=== PATIENT | male | born 1980 | race Caucasian/White ===

== ENCOUNTER 2018-12-02 21:48 | Inpatient (IN) | payer OTHER ==
[2018-12-02 22:23] VITALS: BMI 22.3
--- NOTE | 2018-12-02 23:13 | HP ---
COWS - Scale Resting Pulse: 2= DE 101-120 Sweatin=Flushed/Facial Moisture Restless Observation: 3= Extraneous Movement Pupil Size: 0= Normal to Room Light Bone or Joint Aches: 4=Acute Joint/Muscle Pain Runny Nose/ Eye Tearin= Runny Nose/Eyes GI Upset > 30mins: 2= Nausea/Diarrhea Tremor Observation: 1= Tremor [place], Not Seen Yawning Observation: 1= 1-2x During Session Anxiety or Irritability: 2=Irritable/Anxious Goose Flesh Skin: 0=Smooth Skin COWS Score: 19 CIWA Score Nausea/Vomitin-Mild Nausea/No Vomiting Muscle Tremors: 1-None Visible, but [place] Anxiety: 4-Mod. Anxious/Guarded Agitation: 4-Moderately Restless Paroxysmal Sweats: 3 Orientation: 0-Oriented Tacttile Disturbances: 3-Moderate Itch/Numb/Burn Auditory Disturbances: 0-None Visual Disturbances: 0-None Headache: 3-Moderate CIWA-Ar Total Score: 19 - Admission Criteria [facility]ASAS Guidelines: Admission for Medically Managed Detox: Requires at least one of the followin. CIWA greater than 12 2. Seizures within the past 24 hours 3. Delirium tremens within the past 24 hours 4. Hallucinations within the past 24 hours 5. Acute intervention needed for co occurring medical disorder 6. Acute intervention needed for co occurring psychiatric disorder 7. Severe withdrawal that cannot be handled at a lower level of care (continued vomiting, continued diarrhea, abnormal vital signs) requiring intravenous medication and/or fluids 8. Patient presents the following: CIWA greater than 12, Seizures, delirium tremens or hallucinations in the past 12 hours Admission Criteria Met: Admission criteria met Admission ROS [facility] Chief Complaint: c/o worsening withdrawal sx's. s/p seizure Allergies/Adverse Reactions: Allergies Allergy/AdvReac Type Severity Reaction Status Date / Time No Known Allergies Allergy Verified 12/02/18 23:24 History of Present Illness: 38 y.o. male with hx/o polysusbatnce abuse here for detox from alcohol , xanax and heroin. client was referred by [facility] after being take there after having a seizure earlier today client reports. he presents with dc papers with dx'x of benzo withdrawal and left hand trigger finger. he also presents with a bleeding abrasion to right side of head. client states he sustained this injury when he fell from the seizure. hospital was called which confirmed client did have a neagtive head ct. This is client first admission here. he presents with withdrawal sx's. -. utox + mtd, bzo, bup, thx, alex. Client reports using 15 bags of heroin daily via iv/sniff and xanax 5 sticks daily last used both drugs 4 days ago. he also reports drinking alcohol 1/2 to 1pint of liquor daily. last 5 days ago. he reports using street sbx and mtd. last use 1 day ago. reports longest clean time 10 years self maintained and most recent clean time is 2 years incarcerated relapsing 3 months ago. this is his 2nd seizure, denies si/hi, avh, dt's. reports hx/o depression denies medical issues except for withdrawal seizures. lives with family, unemployed, denies legals Exam Limitations: No Limitations - Ebola screening Have you traveled outside of the country in the last 21 days: No Have you had contact with anyone from an Ebola affected area: No Have you been sick,other than usual withdrawal symptoms: No Do you have a fever: No - Review of Systems Constitutional: Chills, Diaphoresis, Malaise, Night Sweats, Changes in sleep, Other (yawning several times) EENT: reports: Dental Problems (missing teeth) Respiratory: reports: No Symptoms reported Cardiac: reports: No Symptoms Reported GI: reports: Diarrhea, Nausea, Poor Fluid Intake : reports: No Symptoms Reported Musculoskeletal: reports: Back Pain, Neck Pain Integumentary: reports: Sweating, Other (r scalp abrasion) Neuro: reports: Seizure (r/t withdrawal), Tremors Endocrine: reports: No Symptoms Reported Hematology: reports: No Symptoms Reported Psychiatric: reports: Orientated x3, Agitated (irritable), Anxious, Depressed Other Systems: Reviewed and Negative Patient History - Patient Medical History Hx Anemia: No Hx Asthma: No Hx Chronic Obstructive Pulmonary Disease (COPD): No Hx Cancer: No Hx Cardiac Disorders: No Hx Congestive Heart Failure: No Hx Hypertension: No Hx Hypercholesterolemia: No Hx Pacemaker: No HX Cerebrovascular Accident: No Hx Seizures: Yes (r/t withdrawals) Hx Dementia: No Hx Diabetes: No Hx Gastrointestinal Disorders: No Hx Liver Disease: No Hx Genitourinary Disorders: No Hx Sexually Transmitted Disorders: No Hx Renal Disease (ESRD): No Hx Thyroid Disease: No Hx Human Immunodeficiency Virus (HIV): No Hx Hepatitis C: No Hx Depression: Yes Hx Suicide Attempt: No Hx Bipolar Disorder: No Hx Schizophrenia: No Other Medical History: denies - Patient Surgical History Past Surgical History: Yes Hx Lung Surgery: Yes Hx Orthopedic Surgery: Yes (both knees) Anesthesia Reaction: No - PPD History Previous Implant?: Yes Documented Results: Negative w/o proof Implanted On Prior [facility] Admission?: No PPD to be Administered?: Yes - Smoking Cessation Smoking history: Current every day smoker Have you smoked in the past 12 months: Yes Aproximately how many cigarettes per day: 20 Cigars Per Day: 0 Hx Chewing Tobacco Use: No Initiated information on smoking cessation: Yes 'Breaking Loose' booklet given: 12/02/18 - Substance & Tx. History Hx Alcohol Use: Yes Hx Substance Use: Yes Substance Use Type: Alcohol, Cocaine, Heroin, Opiates Hx Substance Use Treatment: Yes (aci) - Substances Abused heroin Route: Injection Frequency: Daily Amount used: 15 bags Age of first use: 31 Date of Last Use: 11/28/18 xanax. Route: Oral Frequency: Daily Amount used: 10mg Age of first use: 27 Date of Last Use: 11/28/18 street mtd Route: Oral Frequency: 3-6 times per week Amount used: 60mg Age of first use: 38 Date of Last Use: 11/29/18 street sbx Route: Oral Frequency: 3-6 times per week Amount used: 8-16mg Age of first use: 36 Date of Last Use: 12/01/18 cocaiine Route: Injection Frequency: 3-6 times per week Amount used: 5gms/wk Age of first use: 21 Date of Last Use: 11/30/18 thc Route: Smoking Frequency: Daily Amount used: 10 joints Age of first use: 20 Date of Last Use: 11/25/18 Family Disease History - Family Disease History Family Disease History: Respiratory: Mother (drug/alcohol/ copd), Other: Father (estranged), Mother Admission Physical Exam BHS - Vital Signs Vital Signs: Vital Signs - 24 hr 12/02/18 22:20 Temperature 97.9 F Pulse Rate 106 H Respiratory 18 Rate Blood Pressure 138/99 - Physical General Appearance: Yes: Appropriately Dressed, Moderate Distress, Tremorous ( felt), Irritable, Sweating, Anxious, Other (frequently yawning) HEENTM: Yes: EOMI, Normal Voice, JACI, Pharynx Normal, Other (abrasion to right side of head) Respiratory: Yes: Chest Non-Tender, Lungs Clear, Normal Breath Sounds, No Respiratory Distress, No Accessory Muscle Use Neck: Yes: No masses,lesions,Nodules, Supple, Trachea in good position Breast: Yes: Breast Exam Deferred Cardiology: Yes: Regular Rhythm, S1, S2, Tachycardia Abdominal: Yes: Normal Bowel Sounds, Non Tender, Flat, Soft Genitourinary: Yes: Other (no c/o) Back: Yes: Normal Inspection Musculoskeletal: Yes: Gait Steady Extremities: Yes: Non-Tender, Tremors, Other (left hand ring finger "trigger finger") Neurological: Yes: Fully Oriented, Alert, Motor Strength 5/5, Depressed Affect Integumentary: Yes: Erythema (flushed skin), Clammy, Track Shah (to bue), Other (abrasion to ble shins scabbing from reported falls right ele of scalp with deep abrasion still with bright red blood) Lymphatic: Yes: Within Normal Limits - Diagnostic (1) Alcohol dependence with uncomplicated withdrawal Current Visit: Yes Status: Acute (2) Opioid dependence with withdrawal Current Visit: Yes Status: Acute (3) Cannabis dependence, uncomplicated Current Visit: Yes Status: Acute (4) Sedative, hypnotic or anxiolytic use, unspecified with withdrawal with perceptual disturbances Current Visit: Yes Status: Acute (5) Cocaine dependence, uncomplicated Current Visit: Yes Status: Acute (6) Substance induced mood disorder Current Visit: Yes Status: Acute (7) Withdrawal seizures Current Visit: Yes Status: Acute Qualifiers: Complication of substance-induced condition: uncomplicated Qualified Code(s ): F19.230 - Other psychoactive substance dependence with withdrawal, uncomplicated; R56.9 - Unspecified convulsions (8) Abrasion, scalp without infection Current Visit: Yes Status: Acute (9) Status post fall Current Visit: Yes Status: Acute Comment: seen and treated at [facility] prior to admission (10) Trigger finger, left ring finger Current Visit: Yes Status: Acute (11) At risk for dehydration due to poor fluid intake Current Visit: Yes Status: Acute Cleared for Admission BHS - Detox or Rehab [facility] Level of Care: Medically Managed Detox Regimen/Protocol: Methadone/Valium Claeared for Rehab Admission: No [facility] Breath Alcohol Content Breath Alcohol Content: 0 Urine Drug Screen - Results Drug Screen Negative: No Urine Drug Screen Results: THC-Marijuana, ALEX-Cocaine, BZO-Benzodiazepines, MTD- Methadone, BUP-Suboxone Inpatient Rehab Admission - Rehab Decision to Admit Inpatient rehab admission?: No
[2018-12-02] MEDS ORDERED: guaiFENesin 200 MG/10 ML 10 ML UNIT-DOSE CUPS PO PRN (23:46)
[2018-12-02] MEDS ORDERED: METHOCARBAMOL 500 MG TABLET PO PRN (23:46)
[2018-12-02] MEDS ORDERED: MELATONIN 5 MG TABLETS PO PRN (23:46)
[2018-12-02] MEDS ORDERED: MAGNESIUM HYDROX 2400MG/30ML ORAL SUSPENSION 30 ML CUP PO PRN (23:46)
[2018-12-02] MEDS ORDERED: MAGNESIUM CITRATE 300 ML BOTTLE PO PRN (23:46)
[2018-12-02] MEDS ORDERED: MAG HYDROX/AL HYDROX/SIMETH 30 ML UNIT-DOSE CUP PO PRN (23:46)
[2018-12-02] MEDS ORDERED: ONDANSETRON *ODT* 4 MG TABLET SL PRN (23:46)
[2018-12-02] MEDS ORDERED: NICOTINE POLACRILEX 2 MG GUM BUC PRN (23:46)
[2018-12-02] MEDS ORDERED: ACETAMINOPHEN 325 MG TABLET (FP) PO PRN (23:46)
[2018-12-02] MEDS ORDERED: DICYCLOMINE HCL 10 MG CAPSULE PO PRN (23:46)
[2018-12-02] MEDS ORDERED: MENTHOL/PHENOL 1 EACH UD MM PRN (23:46)
[2018-12-02] MEDS ORDERED: IBUPROFEN 400 MG TABLET (FP) PO PRN (23:46)
[2018-12-02] MEDS ORDERED: BISMUTH SUBSALICYLATE 524 MG/30 ML UD PO PRN (23:46)
[2018-12-02] MEDS ORDERED: P-EPHED 60MG/TRIPROLIDI 2.5MG TABLET PO PRN (23:46)
[2018-12-03] MEDS ORDERED: NALOXONE HCL 0.4 MG/ML VIAL IVPUSH PRN (01:05)
[2018-12-03] MEDS: BACITRACIN 0.9 GM PACKET TP SCH ×3 (01:05→22:49)
[2018-12-03] MEDS ORDERED: cloNIDine HCL 0.1 MG TABLET PO PRN (01:05)
[2018-12-03] MEDS ORDERED: diazePAM 5 MG TABLET PO ONE (01:05)
[2018-12-03] MEDS ORDERED: METHADONE HCL 10 MG TABLET (FOR DETOX USE ONLY) PO ONE ×4 (01:08→23:00)
[2018-12-03] MEDS: hydrOXYzine PAMOATE 25 MG CAPSULE (FP) PO PRN ×2 (01:08→22:50)
[2018-12-03] MEDS: diazePAM 5 MG TABLET PO SCH ×3 (07:42→22:48)
[2018-12-03] MEDS: PRENATAL VITAMINS W/ FOLIC ACID TABLET (FP) PO SCH (09:30)
[2018-12-03] MEDS: diazePAM 5 MG TABLET PO PRN (09:30)
[2018-12-03] MEDS: NICOTINE 21 MG/24 HOURS TOPICAL PATCH TD SCH (09:34)
[2018-12-03] MEDS ORDERED: TRIMETHOBENZAMIDE HCL 300 MG CAPSULE PO PRN (09:35)
[2018-12-03 10:34] LABS: ALBUMIN 3.3 g/dl (3.4-5.0); ALK PHOS 86 U/L (45-117); ANION GAP 8 MMOL/L (8-16); BILIRUBIN,TOTAL 0.4 mg/dL (0.2-1); BLOOD UREA NITROGEN 12 mg/dL (7-18); CALCIUM 8.2 mg/dL (8.5-10.1); CHLORIDE 106 mmol/L (98-107); CO2 26 mmol/L (21-32); CREATININE 0.8 mg/dL (0.55-1.3); GLUCOSE,RANDOM 75 mg/dL (74-106); POTASSIUM 3.4 mmol/L (3.5-5.1); SGOT/AST 120 U/L (15-37); SGPT/ALT 184 U/L (13-61); SODIUM 140 mmol/L (136-145); TOT PROT 6.2 g/dl (6.4-8.2)
[2018-12-03 10:43] LABS: HEMATOCRIT 38.7 % (35.4-49); HEMOGLOBIN 13.7 GM/dL (11.7-16.9); MCH 31.1 pg (25.7-33.7); MCHC 35.3 g/dl (32.0-35.9); MEAN CELL VOLUME 88.2 fl (80-96); MEAN PLT VOLUME 9.4 fl (7.5-11.1); PLATELET COUNT 157 K/MM3 (134-434); RBC 4.39 M/mm3 (4.00-5.60); RDW 13.8 % (11.9-15.9); WHITE BLOOD COUNT 5.1 K/mm3 (4.0-10.0)
--- NOTE | 2018-12-03 13:08 | EKG ---
Test Reason : Blood Pressure : / mmHG Vent. Rate : 066 BPM Atrial Rate : 066 BPM P-R Int : 150 ms QRS Dur : 104 ms QT Int : 444 ms P-R-T Axes : 069 071 063 degrees QTc Int : 465 ms NORMAL SINUS RHYTHM WITH SINUS ARRHYTHMIA NORMAL ECG NO PREVIOUS ECGS AVAILABLE Confirmed by MD NISHANT, JAMEY ([id number]) on 12/03/2018 1:08:22 PM Referred By: Confirmed By:JAMEY DILLARD MD
--- NOTE | 2018-12-03 13:27 | CONSULT ---
[facility] Psychiatric Consult - Data Date of interview: 12/03/18 Admission source: [facility] Identifying data: Visited at bedside twice for psychiatric evaluation. Patient declines. Nursing staff is made aware.
--- NOTE | 2018-12-03 15:16 | PN ---
[facility] COWS - Scale Resting Pulse: 1= SD 81-100 BHS Progress Note (SOAP) Subjective: Body Aches, Sweating, Hot / Cold Sensations, Diarrhea, Tremors, Anxious, Vomiting. Objective: PATIENT A & O X 3, OBSERVED AMBULATING ON UNIT. IN NO ACUTE DISTRESS. 12/03/18 15:11 Vital Signs Temperature 97.5 F L 12/03/18 13:56 Pulse Rate 70 12/03/18 13:56 Respiratory Rate 18 12/03/18 13:56 Blood Pressure 133/87 12/03/18 13:56 O2 Sat by Pulse Oximetry (%) Laboratory Tests 12/03/18 12/03/18 12/03/18 07:50 07:50 07:50 WBC 5.1 RBC 4.39 Hgb 13.7 Hct 38.7 MCV 88.2 MCH 31.1 MCHC 35.3 RDW 13.8 Plt Count 157 MPV 9.4 Sodium 140 Potassium 3.4 L Chloride 106 Carbon Dioxide 26 Anion Gap 8 BUN 12 Creatinine 0.8 Creat Clearance w eGFR 108.77 Random Glucose 75 Calcium 8.2 L Total Bilirubin 0.4 AST 120 H ALT 184 H Alkaline Phosphatase 86 Total Protein 6.2 L Albumin 3.3 L RPR Titer Nonreactive LABS NOTED. Assessment: 12/03/18 15:11 WITHDRAWAL SYMPTOMS. HYPOKALEMIA. ELEVATED LIVER ENZYMES. 12/03/18 15:14 Plan: CONTINUE DETOX. INCREASE DAILY PO FLUID INTAKE. K-DUR, 20 MEQ PO BID FOR HYPOKALEMIA. REPEAT K LEVEL ON 12/05/2018 AM. REPEAT AST /ALT ON 12/05/2018 FOR ELEVATED ADMISSION LEVELS. PRN ROBAXIN FOR BODY ACHES / RESTLESS LEGS. PRN TIGAN PO FOR VOMTINIG. PRN PEPTO BISMOL FOR DAIRRHEA.
[2018-12-03] MEDS: POTASSIUM CHLORIDE TABS 20 MEQ TABLET.ER (FP) PO SCH (19:00)
[2018-12-04] MEDS: THIAMINE HCL 100 MG TABLET (FP) PO SCH ×2 (00:18→22:27)
[2018-12-04] MEDS: diazePAM 5 MG TABLET PO SCH ×2 (05:32→17:27)
[2018-12-04] MEDS ORDERED: METHADONE HCL 10 MG TABLET (FOR DETOX USE ONLY) PO ONE (10:00)
[2018-12-04] MEDS: BACITRACIN 0.9 GM PACKET TP SCH ×2 (10:46→22:27)
[2018-12-04] MEDS: diazePAM 5 MG TABLET PO PRN ×2 (10:50→22:26)
[2018-12-04] MEDS: PRENATAL VITAMINS W/ FOLIC ACID TABLET (FP) PO SCH (10:51)
[2018-12-04] MEDS: NICOTINE 21 MG/24 HOURS TOPICAL PATCH TD SCH (10:51)
[2018-12-04] MEDS: POTASSIUM CHLORIDE TABS 20 MEQ TABLET.ER (FP) PO SCH ×2 (10:51→18:30)
--- NOTE | 2018-12-04 14:14 | PN ---
[facility] CIWA - CIWA Score Nausea/Vomitin-No Nausea/No Vomiting Muscle Tremors: 2 Anxiety: 2 Agitation: 2 Paroxysmal Sweats: 1-Minimal Palms Moist Orientation: 2-Disoriented Date<2 days Tacttile Disturbances: 0-None Auditory Disturbances: 0-None Visual Disturbances: 0-None Headache: 1-Very Mild CIWA-Ar Total Score: 10 BHS COWS - Scale Resting Pulse: 0= OR 80 or Below Sweatin= Chills/Flushing Restless Observation: 0= Sits Still Pupil Size: 0= Normal to Room Light Bone or Joint Aches: 1= Mild Discomfort Runny Nose/ Eye Tearin= Nasal Congestion GI Upset > 30mins: 1= Stomach Cramp Tremor Observation of Outstretched Hands: 2= Slight Tremor Visible Yawning Observation: 2= >3x During Session Anxiety or Irritability: 2=Irritable/Anxious Goose Flesh Skin: 0=Smooth Skin COWS Score: 10 [facility] Progress Note (SOAP) Subjective: body aches tremor trouble sleep at [place] wants more methadone alert no acute distress discuss methadone maintenance treatment program Objective: 12/04/18 14:16 Vital Signs Temperature 97.0 F L 12/04/18 13:44 Pulse Rate 59 L 12/04/18 13:44 Respiratory Rate 18 12/04/18 13:44 Blood Pressure 118/82 12/04/18 13:44 O2 Sat by Pulse Oximetry (%) Laboratory Last Values WBC 5.1 K/mm3 (4.0-10.0) 12/03/18 07:50 RBC 4.39 M/mm3 (4.00-5.60) 12/03/18 07:50 Hgb 13.7 GM/dL (11.7-16.9) 12/03/18 07:50 Hct 38.7 % (35.4-49) 12/03/18 07:50 MCV 88.2 fl (80-96) 12/03/18 07:50 MCH 31.1 pg (25.7-33.7) 12/03/18 07:50 MCHC 35.3 g/dl (32.0-35.9) 12/03/18 07:50 RDW 13.8 % (11.9-15.9) 12/03/18 07:50 Plt Count 157 K/MM3 (134-434) 12/03/18 07:50 MPV 9.4 fl (7.5-11.1) 12/03/18 07:50 Sodium 140 mmol/L (136-145) 12/03/18 07:50 Potassium 3.4 mmol/L (3.5-5.1) L 12/03/18 07:50 Chloride 106 mmol/L (98-107) 12/03/18 07:50 Carbon Dioxide 26 mmol/L (21-32) 12/03/18 07:50 Anion Gap 8 MMOL/L (8-16) 12/03/18 07:50 BUN 12 mg/dL (7-18) 12/03/18 07:50 Creatinine 0.8 mg/dL (0.55-1.3) 12/03/18 07:50 Creat Clearance w eGFR 108.77 (>60) 12/03/18 07:50 Random Glucose 75 mg/dL (74-106) 12/03/18 07:50 Calcium 8.2 mg/dL (8.5-10.1) L 12/03/18 07:50 Total Bilirubin 0.4 mg/dL (0.2-1) 12/03/18 07:50 AST 120 U/L (15-37) H 12/03/18 07:50 ALT 184 U/L (13-61) H 12/03/18 07:50 Alkaline Phosphatase 86 U/L (45-117) 12/03/18 07:50 Total Protein 6.2 g/dl (6.4-8.2) L 12/03/18 07:50 Albumin 3.3 g/dl (3.4-5.0) L 12/03/18 07:50 RPR Titer Nonreactive (NONREACTIVE) 12/03/18 07:50 lab noted Assessment: 12/04/18 14:17 withdrawal sx Plan: continue detox
[2018-12-05] MEDS ORDERED: diazePAM 5 MG TABLET PO ONE (06:00)
[2018-12-05 06:13] VITALS: BP 99/56; PULSE 55; TEMP 97.3
[2018-12-05] MEDS ORDERED: METHADONE HCL 10 MG TABLET (FOR DETOX USE ONLY) PO ONE (10:00)
[2018-12-05] MEDS: PRENATAL VITAMINS W/ FOLIC ACID TABLET (FP) PO SCH (10:14)
[2018-12-05] MEDS: BACITRACIN 0.9 GM PACKET TP SCH (10:15)
[2018-12-05] MEDS: NICOTINE 21 MG/24 HOURS TOPICAL PATCH TD SCH (10:15)
[2018-12-05] MEDS: POTASSIUM CHLORIDE TABS 20 MEQ TABLET.ER (FP) PO SCH (10:15)
[2018-12-05 11:49] LABS: URINE APPEARANCE CLEAR; URINE BILIRUBIN NEGATIVE (<2.0 mg/dL); URINE COLOR LTYELLOW; URINE GLUCOSE (UA) NEGATIVE (NEGATIVE); URINE KETONE NEGATIVE (NEGATIVE); URINE LEUK ESTERASE NEGATIVE (NEGATIVE); URINE NITRITE NEGATIVE (NEGATIVE); URINE PROTEIN NEGATIVE (NEGATIVE); URINE UROBILINOGEN NEGATIVE mg/dL (0.2-1.0)
--- NOTE | 2018-12-05 16:11 | DS ---
[facility] Detox Discharge Summary Admission Date: 12/03/18 Discharge Date: 12/05/18 - History Present History: Alcohol Dependence, Opioid Dependence Additional Comments: 38 years old male admitted on 12/02/18 for benzo and opiate withdrawal stabilization insists to leave the detox unit to go back to work today patient preferring to go to methadone maintenance treatment program at [facility] patient is alert no acute distress denies suicidal ideation - Physical Exam Results Vital Signs: Vital Signs Temperature 97.3 F L 12/05/18 06:13 Pulse Rate 55 L 12/05/18 06:13 Respiratory Rate 18 12/05/18 06:13 Blood Pressure 99/56 L 12/05/18 06:13 O2 Sat by Pulse Oximetry (%) Pertinent Admission Physical Exam Findings: benzo and opiate withdrawal sx Laboratory Last Values WBC 5.1 K/mm3 (4.0-10.0) 12/03/18 07:50 RBC 4.39 M/mm3 (4.00-5.60) 12/03/18 07:50 Hgb 13.7 GM/dL (11.7-16.9) 12/03/18 07:50 Hct 38.7 % (35.4-49) 12/03/18 07:50 MCV 88.2 fl (80-96) 12/03/18 07:50 MCH 31.1 pg (25.7-33.7) 12/03/18 07:50 MCHC 35.3 g/dl (32.0-35.9) 12/03/18 07:50 RDW 13.8 % (11.9-15.9) 12/03/18 07:50 Plt Count 157 K/MM3 (134-434) 12/03/18 07:50 MPV 9.4 fl (7.5-11.1) 12/03/18 07:50 Sodium 140 mmol/L (136-145) 12/03/18 07:50 Potassium 4.0 mmol/L (3.5-5.1) 12/05/18 07:40 Chloride 106 mmol/L (98-107) 12/03/18 07:50 Carbon Dioxide 26 mmol/L (21-32) 12/03/18 07:50 Anion Gap 8 MMOL/L (8-16) 12/03/18 07:50 BUN 12 mg/dL (7-18) 12/03/18 07:50 Creatinine 0.8 mg/dL (0.55-1.3) 12/03/18 07:50 Creat Clearance w eGFR 108.77 (>60) 12/03/18 07:50 Random Glucose 75 mg/dL (74-106) 12/03/18 07:50 Calcium 8.2 mg/dL (8.5-10.1) L 12/03/18 07:50 Total Bilirubin 0.4 mg/dL (0.2-1) 12/03/18 07:50 AST 64 U/L (15-37) H 12/05/18 07:40 ALT 145 U/L (13-61) H 12/05/18 07:40 Alkaline Phosphatase 86 U/L (45-117) 12/03/18 07:50 Total Protein 6.2 g/dl (6.4-8.2) L 12/03/18 07:50 Albumin 3.3 g/dl (3.4-5.0) L 12/03/18 07:50 Urine Color Ltyellow 12/05/18 09:50 Urine Appearance Clear 12/05/18 09:50 Urine pH 6.0 (5.0-8.0) 12/05/18 09:50 Ur Specific [place] 1.018 (1.010-1.035) 12/05/18 09: Urine Protein Negative (NEGATIVE) 12/05/18 09:50 Urine Glucose (UA) Negative (NEGATIVE) 12/05/18 09:50 Urine Ketones Negative (NEGATIVE) 12/05/18 09:50 Urine Blood Negative (NEGATIVE) 12/05/18 09:50 Urine Nitrite Negative (NEGATIVE) 12/05/18 09:50 Urine Bilirubin Negative (<2.0 mg/dL) 12/05/18 09:50 Urine Urobilinogen Negative mg/dL (0.2-1.0) 12/05/18 09:50 Ur Leukocyte Esterase Negative (NEGATIVE) 12/05/18 09:50 RPR Titer Nonreactive (NONREACTIVE) 12/03/18 07:50 lab noted - Treatment Hospital Course: Detox Protocol Followed, Detoxed Safely, Responded well, Discharged Condition Good, Rehab Referral Accepted Patient has Accepted a Rehab Referral to: [facility] - Medication Discharge Medications: Ambulatory Orders NK [No Known Home Medication] 12/02/18 - Diagnosis (1) Opioid dependence with withdrawal Status: Acute (2) Sedative, hypnotic or anxiolytic use, unspecified with withdrawal with perceptual disturbances Status: Acute (3) Substance induced mood disorder Status: Acute - AMA Did Patient Leave Against Medical Advice: No
[2018-12-06] MEDS ORDERED: METHADONE HCL 10 MG TABLET (FOR DETOX USE ONLY) PO ONE (10:00)
[2018-12-07] MEDS ORDERED: METHADONE HCL 5 MG TABLET (FOR DETOX USE ONLY) PO ONE (06:00)
== END 2018-12-05 11:10 | disposition left against medical advice (07) | DRG 770 ==
LOC: YASAS 21:48 → Y3N 12-03 00:23
PROVIDERS: ADMIT Surgery; ATTEND Surgery
PROC: HZ2ZZZZ Detoxification Services for Substance Abuse Treatment (ICD-10-PCS; principal; 2018-12-03)
DX: F11.23 Opioid dependence with withdrawal (principal); F10.230 Alcohol dependence with withdrawal, uncomplicated; F13.230 Sedative, hypnotic or anxiolytic dependence with withdrawal, uncomplicated; F14.20 Cocaine dependence, uncomplicated; F12.20 Cannabis dependence, uncomplicated; F17.210 Nicotine dependence, cigarettes, uncomplicated; F19.24 Other psychoactive substance dependence with psychoactive substance-induced mood disorder; I10 Essential (primary) hypertension; E87.6 Hypokalemia; R94.5 Abnormal results of liver function studies; R00.0 Tachycardia, unspecified; R63.8 Other symptoms and signs concerning food and fluid intake; L02.811 Cutaneous abscess of head [any part, except face]; M65.342 Trigger finger, left ring finger; Z86.69 Personal history of other diseases of the nervous system and sense organs
CPT/HCPCS: 36415; 80053; 81003; 84132; 84450; 84460; 85027; 86593; 93005; 93010; J0735

== ENCOUNTER 2021-04-09 13:21 | Inpatient (IN) | payer OTHER ==
[2021-04-09 15:47] VITALS: BMI 22.1
[2021-04-09] MEDS ORDERED: MAGNESIUM HYDROX 2400MG/30ML ORAL SUSPENSION 30 ML CUP PO PRN (17:10)
[2021-04-09] MEDS ORDERED: ONDANSETRON *ODT* 4 MG TABLET SL PRN (17:10)
[2021-04-09] MEDS ORDERED: BISMUTH SUBSALICYLATE 524 MG/30 ML PO PRN (17:10)
[2021-04-09] MEDS ORDERED: MAG HYDROX/AL HYDROX/SIMETH 30 ML UNIT-DOSE CUP PO PRN (17:10)
[2021-04-09] MEDS ORDERED: ACETAMINOPHEN 325 MG TABLET (FP) PO PRN ×2 (17:10)
[2021-04-09] MEDS ORDERED: NICOTINE POLACRILEX 2 MG GUM BUC PRN (17:10)
[2021-04-09] MEDS ORDERED: MAGNESIUM CITRATE 300 ML BOTTLE PO PRN (17:10)
[2021-04-09] MEDS ORDERED: MENTHOL/PHENOL 1 EACH UD MM PRN (17:10)
[2021-04-09] MEDS: METHOCARBAMOL 500 MG TABLET PO PRN (18:57)
[2021-04-09] MEDS: hydrOXYzine PAMOATE 25 MG CAPSULE (FP) PO SCH ×2 (18:57→22:32)
[2021-04-09] MEDS: NICOTINE 14 MG/24 HOURS TOPICAL PATCH TD SCH (18:58)
[2021-04-09] MEDS: MELATONIN 5 MG TABLETS PO SCH (22:32)
[2021-04-09] MEDS: LORazepam 2 MG TABLET PO SCH (22:32)
[2021-04-09] MEDS: THIAMINE HCL 100 MG TABLET (FP) PO SCH (22:32)
[2021-04-10] MEDS: LORazepam 2 MG TABLET PO SCH ×4 (06:01→22:17)
[2021-04-10] MEDS: METHOCARBAMOL 500 MG TABLET PO PRN ×2 (06:01→17:32)
[2021-04-10] MEDS: hydrOXYzine PAMOATE 25 MG CAPSULE (FP) PO SCH (06:01)
[2021-04-10] MEDS ORDERED: methaDONE HCL 10 MG TABLET PO ONE (08:53)
[2021-04-10] MEDS ORDERED: methaDONE HCL 10 MG TABLET ONE (09:45)
[2021-04-10] MEDS ORDERED: methaDONE HCL 40 MG DISPERSABLE TABLET ONE (09:45)
[2021-04-10] MEDS: NICOTINE 14 MG/24 HOURS TOPICAL PATCH TD SCH (10:19)
[2021-04-10] MEDS: PRENATAL VITAMINS W/ FOLIC ACID TABLET (FP) PO SCH (10:19)
[2021-04-10] MEDS: hydrOXYzine PAMOATE 25 MG CAPSULE (FP) PO PRN ×3 (10:24→22:17)
[2021-04-10] MEDS: IBUPROFEN 400 MG TABLET (FP) PO PRN (10:24)
[2021-04-10 10:44] LABS: HEMATOCRIT 38.6 % (35.4-49); MCH 30.2 pg (25.7-33.7); MCHC 33.6 g/dl (32.0-35.9); MEAN CELL VOLUME 89.8 fl (80-96); MEAN PLT VOLUME 9.3 fl (7.5-11.1); PLATELET COUNT 198 10^3/uL (134-434); RDW 13.4 % (11.9-15.9); WHITE BLOOD COUNT 4.6 K/mm3 (4.0-10.0)
[2021-04-10 11:17] LABS: BLOOD UREA NITROGEN 17.5 mg/dL (7-18)
[2021-04-10 11:18] LABS: CALCIUM 8.7 mg/dL (8.5-10.1)
[2021-04-10 11:19] LABS: ALBUMIN 3.4 g/dl (3.4-5.0)
[2021-04-10 11:21] LABS: CREATININE 0.9 mg/dL (0.55-1.3)
[2021-04-10 11:23] LABS: BILIRUBIN,TOTAL 0.2 mg/dL (0.2-1); TOT PROT 6.7 g/dl (6.4-8.2)
[2021-04-10] MEDS: LORazepam 1 MG TABLET PO PRN ×2 (18:48→23:20)
[2021-04-10] MEDS: THIAMINE HCL 100 MG TABLET (FP) PO SCH (22:17)
[2021-04-10] MEDS: QUEtiapine FUMARATE 50 MG TABLET PO SCH (22:17)
[2021-04-10] MEDS: MELATONIN 5 MG TABLETS PO SCH (22:17)
[2021-04-11] MEDS: METHOCARBAMOL 500 MG TABLET PO PRN ×3 (01:05→20:44)
[2021-04-11] MEDS: hydrOXYzine PAMOATE 25 MG CAPSULE (FP) PO PRN ×2 (02:35→22:21)
[2021-04-11] MEDS ORDERED: methaDONE HCL 40 MG DISPERSABLE TABLET ONE (04:23)
[2021-04-11] MEDS ORDERED: methaDONE HCL 10 MG TABLET ONE (04:23)
[2021-04-11] MEDS ORDERED: methaDONE HCL 40 MG DISPERSABLE TABLET PO SCH (06:00)
[2021-04-11] MEDS: LORazepam 1 MG TABLET PO SCH ×4 (06:34→22:19)
[2021-04-11] MEDS: PRENATAL VITAMINS W/ FOLIC ACID TABLET (FP) PO SCH (10:28)
[2021-04-11] MEDS: NICOTINE 14 MG/24 HOURS TOPICAL PATCH TD SCH (10:28)
[2021-04-11] MEDS: IBUPROFEN 400 MG TABLET (FP) PO PRN (20:44)
[2021-04-11] MEDS: QUEtiapine FUMARATE 50 MG TABLET PO SCH (22:21)
[2021-04-11] MEDS: MELATONIN 5 MG TABLETS PO SCH (22:22)
[2021-04-11] MEDS: THIAMINE HCL 100 MG TABLET (FP) PO SCH (22:22)
[2021-04-12] MEDS ORDERED: methaDONE HCL 10 MG TABLET ONE (03:46)
[2021-04-12] MEDS ORDERED: methaDONE HCL 40 MG DISPERSABLE TABLET ONE (03:46)
[2021-04-12] MEDS: METHOCARBAMOL 500 MG TABLET PO PRN ×3 (05:41→17:32)
[2021-04-12] MEDS: LORazepam 0.5 MG TABLET PO SCH ×4 (05:43→22:54)
[2021-04-12] MEDS: LORazepam 0.5 MG TABLET PO PRN ×2 (08:37→19:42)
[2021-04-12] MEDS: hydrOXYzine PAMOATE 25 MG CAPSULE (FP) PO PRN ×3 (08:40→19:43)
[2021-04-12] MEDS: NICOTINE 14 MG/24 HOURS TOPICAL PATCH TD SCH (11:16)
[2021-04-12] MEDS: PRENATAL VITAMINS W/ FOLIC ACID TABLET (FP) PO SCH (11:20)
[2021-04-12] MEDS: IBUPROFEN 400 MG TABLET (FP) PO PRN (19:43)
[2021-04-12] MEDS: THIAMINE HCL 100 MG TABLET (FP) PO SCH (22:53)
[2021-04-12] MEDS: QUEtiapine FUMARATE 50 MG TABLET PO SCH (22:53)
[2021-04-12] MEDS: MELATONIN 5 MG TABLETS PO SCH (22:54)
[2021-04-13] MEDS ORDERED: methaDONE HCL 10 MG TABLET ONE (03:23)
[2021-04-13] MEDS ORDERED: methaDONE HCL 40 MG DISPERSABLE TABLET ONE (03:24)
[2021-04-13] MEDS ORDERED: LORazepam 0.5 MG TABLET PO ONE (05:00)
[2021-04-13 06:43] VITALS: BP 101/61; PULSE 67; TEMP 96.9
[2021-04-13] MEDS: PRENATAL VITAMINS W/ FOLIC ACID TABLET (FP) PO SCH (10:51)
[2021-04-13] MEDS: NICOTINE 14 MG/24 HOURS TOPICAL PATCH TD SCH (10:51)
[2021-04-13] MEDS: hydrOXYzine PAMOATE 25 MG CAPSULE (FP) PO PRN (10:53)
[2021-04-13] MEDS: METHOCARBAMOL 500 MG TABLET PO PRN (10:53)
== END 2021-04-13 14:55 | disposition other institution (70) | DRG 773 ==
LOC: YASAS 13:21 → Y3N 17:14
PROVIDERS: ADMIT Allergy & Immunology; ATTEND Allergy & Immunology
PROC: HZ2ZZZZ Detoxification Services for Substance Abuse Treatment (ICD-10-PCS; principal; 2021-04-09)
DX: F10.230 Alcohol dependence with withdrawal, uncomplicated (principal); F11.20 Opioid dependence, uncomplicated; F13.20 Sedative, hypnotic or anxiolytic dependence, uncomplicated; F14.20 Cocaine dependence, uncomplicated; F12.20 Cannabis dependence, uncomplicated; F17.210 Nicotine dependence, cigarettes, uncomplicated; F19.24 Other psychoactive substance dependence with psychoactive substance-induced mood disorder; F39 Unspecified mood [affective] disorder; Z86.69 Personal history of other diseases of the nervous system and sense organs; Z91.5 Personal history of self-harm
CPT/HCPCS: 36415; 71046-TC-FY; 80053; 85027; 86780; 93005; 93010; C9803; U0003; U0005

== ENCOUNTER 2021-04-13 15:04 | Inpatient (IN) | payer OTHER ==
[2021-04-13] MEDS ORDERED: MAGNESIUM HYDROX 2400MG/30ML ORAL SUSPENSION 30 ML CUP PO PRN (17:43)
[2021-04-13] MEDS ORDERED: MAG HYDROX/AL HYDROX/SIMETH 30 ML UNIT-DOSE CUP PO PRN (17:43)
[2021-04-13] MEDS ORDERED: MENTHOL/PHENOL 1 EACH UD MM PRN (17:43)
[2021-04-13] MEDS ORDERED: P-EPHED 60MG/TRIPROLIDI 2.5MG TABLET PO PRN (17:43)
[2021-04-13] MEDS ORDERED: LOPERAMIDE HCL 2 MG CAPSULE PO PRN (17:43)
[2021-04-13] MEDS ORDERED: hydrOXYzine PAMOATE 25 MG CAPSULE (FP) PO PRN (17:43)
[2021-04-13] MEDS ORDERED: MAGNESIUM CITRATE 300 ML BOTTLE PO PRN (17:43)
[2021-04-13] MEDS ORDERED: guaiFENesin 200 MG/10 ML 10 ML UNIT-DOSE CUPS PO PRN (17:43)
[2021-04-13] MEDS ORDERED: ACETAMINOPHEN 325 MG TABLET (FP) PO PRN (17:43)
[2021-04-13] MEDS ORDERED: NICOTINE POLACRILEX 2 MG GUM BUC PRN (17:43)
[2021-04-13] MEDS: METHOCARBAMOL 500 MG TABLET PO SCH (21:50)
[2021-04-13] MEDS: MELATONIN 5 MG TABLETS PO SCH (21:50)
[2021-04-13] MEDS: THIAMINE HCL 100 MG TABLET (FP) PO SCH (21:50)
[2021-04-13] MEDS ORDERED: QUEtiapine FUMARATE 50 MG TABLET PO SCH (22:00)
[2021-04-14] MEDS: METHOCARBAMOL 500 MG TABLET PO SCH ×3 (06:29→21:29)
[2021-04-14] MEDS ORDERED: methaDONE HCL 10 MG TABLET ONE (06:55)
[2021-04-14] MEDS ORDERED: methaDONE HCL 40 MG DISPERSABLE TABLET ONE (06:55)
[2021-04-14] MEDS: PRENATAL VITAMINS W/ FOLIC ACID TABLET (FP) PO SCH (10:20)
[2021-04-14] MEDS: NICOTINE 7 MG/24 HOURS TOPICAL PATCH TD SCH (10:20)
[2021-04-14] MEDS: hydrOXYzine PAMOATE 50 MG CAPSULE (FP) PO PRN ×2 (10:22→18:06)
[2021-04-14] MEDS: IBUPROFEN 400 MG TABLET (FP) PO PRN (18:06)
[2021-04-14] MEDS: QUEtiapine FUMARATE 100 MG TABLET (FP) PO SCH (21:29)
[2021-04-14] MEDS: MELATONIN 5 MG TABLETS PO SCH (21:29)
[2021-04-14] MEDS: THIAMINE HCL 100 MG TABLET (FP) PO SCH (21:29)
[2021-04-15] MEDS ORDERED: methaDONE HCL 10 MG TABLET ONE (03:39)
[2021-04-15] MEDS ORDERED: methaDONE HCL 40 MG DISPERSABLE TABLET ONE (03:39)
[2021-04-15] MEDS ORDERED: methaDONE HCL 40 MG DISPERSABLE TABLET PO SCH (06:00)
[2021-04-15] MEDS: METHOCARBAMOL 500 MG TABLET PO SCH ×3 (06:49→21:05)
[2021-04-15] MEDS: PRENATAL VITAMINS W/ FOLIC ACID TABLET (FP) PO SCH (09:57)
[2021-04-15] MEDS: NICOTINE 7 MG/24 HOURS TOPICAL PATCH TD SCH (09:57)
[2021-04-15] MEDS: hydrOXYzine PAMOATE 50 MG CAPSULE (FP) PO PRN ×3 (09:58→21:05)
[2021-04-15] MEDS: IBUPROFEN 400 MG TABLET (FP) PO PRN (13:14)
[2021-04-15] MEDS: THIAMINE HCL 100 MG TABLET (FP) PO SCH (21:05)
[2021-04-15] MEDS: MELATONIN 5 MG TABLETS PO SCH (21:05)
[2021-04-15] MEDS: QUEtiapine FUMARATE 100 MG TABLET (FP) PO SCH (21:05)
[2021-04-16] MEDS ORDERED: methaDONE HCL 10 MG TABLET ONE (03:24)
[2021-04-16] MEDS ORDERED: methaDONE HCL 40 MG DISPERSABLE TABLET ONE (03:24)
[2021-04-16] MEDS: METHOCARBAMOL 500 MG TABLET PO SCH ×3 (06:47→21:25)
[2021-04-16] MEDS: PRENATAL VITAMINS W/ FOLIC ACID TABLET (FP) PO SCH (09:40)
[2021-04-16] MEDS: hydrOXYzine PAMOATE 50 MG CAPSULE (FP) PO PRN ×3 (09:40→21:25)
[2021-04-16] MEDS: NICOTINE 7 MG/24 HOURS TOPICAL PATCH TD SCH (09:41)
[2021-04-16] MEDS: THIAMINE HCL 100 MG TABLET (FP) PO SCH (21:25)
[2021-04-16] MEDS: QUEtiapine FUMARATE 100 MG TABLET (FP) PO SCH (21:25)
[2021-04-16] MEDS: MELATONIN 5 MG TABLETS PO SCH (21:25)
[2021-04-17] MEDS ORDERED: methaDONE HCL 10 MG TABLET ONE (03:15)
[2021-04-17] MEDS ORDERED: methaDONE HCL 40 MG DISPERSABLE TABLET ONE (03:15)
[2021-04-17] MEDS: METHOCARBAMOL 500 MG TABLET PO SCH ×3 (07:31→21:29)
[2021-04-17] MEDS: PRENATAL VITAMINS W/ FOLIC ACID TABLET (FP) PO SCH (10:20)
[2021-04-17] MEDS: NICOTINE 7 MG/24 HOURS TOPICAL PATCH TD SCH (10:20)
[2021-04-17] MEDS: hydrOXYzine PAMOATE 50 MG CAPSULE (FP) PO PRN ×3 (12:15→21:30)
[2021-04-17] MEDS: MELATONIN 5 MG TABLETS PO SCH (21:29)
[2021-04-17] MEDS: QUEtiapine FUMARATE 100 MG TABLET (FP) PO SCH (21:29)
[2021-04-17] MEDS: THIAMINE HCL 100 MG TABLET (FP) PO SCH (21:49)
[2021-04-18] MEDS ORDERED: methaDONE HCL 40 MG DISPERSABLE TABLET ONE (03:32)
[2021-04-18] MEDS ORDERED: methaDONE HCL 10 MG TABLET ONE (03:32)
[2021-04-18] MEDS: METHOCARBAMOL 500 MG TABLET PO SCH ×3 (06:40→21:53)
[2021-04-18] MEDS: PRENATAL VITAMINS W/ FOLIC ACID TABLET (FP) PO SCH (10:32)
[2021-04-18] MEDS: hydrOXYzine PAMOATE 50 MG CAPSULE (FP) PO PRN ×3 (10:32→21:55)
[2021-04-18] MEDS: NICOTINE 7 MG/24 HOURS TOPICAL PATCH TD SCH (10:33)
[2021-04-18] MEDS: QUEtiapine FUMARATE 100 MG TABLET (FP) PO SCH (21:53)
[2021-04-18] MEDS: MELATONIN 5 MG TABLETS PO SCH (21:54)
[2021-04-18] MEDS: THIAMINE HCL 100 MG TABLET (FP) PO SCH (21:54)
[2021-04-19] MEDS ORDERED: methaDONE HCL 10 MG TABLET ONE (05:16)
[2021-04-19] MEDS ORDERED: methaDONE HCL 40 MG DISPERSABLE TABLET ONE (05:17)
[2021-04-19] MEDS: METHOCARBAMOL 500 MG TABLET PO SCH ×3 (07:40→21:34)
[2021-04-19] MEDS: NICOTINE 7 MG/24 HOURS TOPICAL PATCH TD SCH (10:24)
[2021-04-19] MEDS: hydrOXYzine PAMOATE 50 MG CAPSULE (FP) PO PRN ×2 (10:24→18:41)
[2021-04-19] MEDS: PRENATAL VITAMINS W/ FOLIC ACID TABLET (FP) PO SCH (10:24)
[2021-04-19] MEDS: QUEtiapine FUMARATE 100 MG TABLET (FP) PO SCH (21:33)
[2021-04-19] MEDS: THIAMINE HCL 100 MG TABLET (FP) PO SCH (21:33)
[2021-04-19] MEDS: MELATONIN 5 MG TABLETS PO SCH (21:34)
[2021-04-20] MEDS ORDERED: methaDONE HCL 10 MG TABLET ONE (03:28)
[2021-04-20] MEDS ORDERED: methaDONE HCL 40 MG DISPERSABLE TABLET ONE (03:29)
[2021-04-20] MEDS: METHOCARBAMOL 500 MG TABLET PO SCH ×3 (07:09→21:19)
[2021-04-20] MEDS: PRENATAL VITAMINS W/ FOLIC ACID TABLET (FP) PO SCH (10:15)
[2021-04-20] MEDS: hydrOXYzine PAMOATE 50 MG CAPSULE (FP) PO PRN ×2 (10:16→21:19)
[2021-04-20] MEDS: NICOTINE 7 MG/24 HOURS TOPICAL PATCH TD SCH (10:16)
[2021-04-20] MEDS: QUEtiapine FUMARATE 100 MG TABLET (FP) PO SCH (21:19)
[2021-04-20] MEDS: THIAMINE HCL 100 MG TABLET (FP) PO SCH (21:19)
[2021-04-20] MEDS: MELATONIN 5 MG TABLETS PO SCH (21:19)
[2021-04-21] MEDS ORDERED: methaDONE HCL 10 MG TABLET ONE (02:41)
[2021-04-21] MEDS ORDERED: methaDONE HCL 40 MG DISPERSABLE TABLET ONE (02:41)
[2021-04-21] MEDS: METHOCARBAMOL 500 MG TABLET PO SCH ×3 (07:08→21:59)
[2021-04-21] MEDS: PRENATAL VITAMINS W/ FOLIC ACID TABLET (FP) PO SCH (10:10)
[2021-04-21] MEDS: NICOTINE 7 MG/24 HOURS TOPICAL PATCH TD SCH (10:10)
[2021-04-21] MEDS: hydrOXYzine PAMOATE 50 MG CAPSULE (FP) PO PRN ×3 (10:11→21:59)
[2021-04-21] MEDS: QUEtiapine FUMARATE 100 MG TABLET (FP) PO SCH (21:59)
[2021-04-21] MEDS: MELATONIN 5 MG TABLETS PO SCH (21:59)
[2021-04-21] MEDS: THIAMINE HCL 100 MG TABLET (FP) PO SCH (21:59)
[2021-04-22] MEDS ORDERED: methaDONE HCL 10 MG TABLET ONE (04:54)
[2021-04-22] MEDS ORDERED: methaDONE HCL 40 MG DISPERSABLE TABLET ONE (04:54)
[2021-04-22] MEDS ORDERED: methaDONE HCL 10 MG TABLET PO SCH (06:00)
[2021-04-22] MEDS: METHOCARBAMOL 500 MG TABLET PO SCH ×3 (06:30→21:44)
[2021-04-22] MEDS: NICOTINE 7 MG/24 HOURS TOPICAL PATCH TD SCH (10:57)
[2021-04-22] MEDS: PRENATAL VITAMINS W/ FOLIC ACID TABLET (FP) PO SCH (10:57)
[2021-04-22] MEDS: hydrOXYzine PAMOATE 50 MG CAPSULE (FP) PO PRN ×2 (13:16→18:28)
[2021-04-22] MEDS: IBUPROFEN 400 MG TABLET (FP) PO PRN (18:28)
[2021-04-22] MEDS: MELATONIN 5 MG TABLETS PO SCH (21:44)
[2021-04-22] MEDS: THIAMINE HCL 100 MG TABLET (FP) PO SCH (21:44)
[2021-04-22] MEDS: QUEtiapine FUMARATE 100 MG TABLET (FP) PO SCH (21:44)
[2021-04-23] MEDS: METHOCARBAMOL 500 MG TABLET PO SCH ×2 (06:46→14:25)
[2021-04-23] MEDS ORDERED: methaDONE HCL 10 MG TABLET ONE (09:03)
[2021-04-23] MEDS ORDERED: methaDONE HCL 40 MG DISPERSABLE TABLET ONE (09:04)
[2021-04-23] MEDS: PRENATAL VITAMINS W/ FOLIC ACID TABLET (FP) PO SCH (09:38)
[2021-04-23] MEDS: NICOTINE 7 MG/24 HOURS TOPICAL PATCH TD SCH (09:39)
[2021-04-23] MEDS: hydrOXYzine PAMOATE 50 MG CAPSULE (FP) PO PRN ×3 (09:42→21:21)
[2021-04-23] MEDS: THIAMINE HCL 100 MG TABLET (FP) PO SCH (21:21)
[2021-04-23] MEDS: QUEtiapine FUMARATE 100 MG TABLET (FP) PO SCH (21:21)
[2021-04-23] MEDS: MELATONIN 5 MG TABLETS PO SCH (21:21)
[2021-04-23] MEDS: METHOCARBAMOL 500 MG TABLET PO PRN (21:22)
[2021-04-24 06:10] VITALS: BP 102/60; PULSE 52; TEMP 97.1
[2021-04-24] MEDS ORDERED: methaDONE HCL 40 MG DISPERSABLE TABLET ONE (08:53)
[2021-04-24] MEDS ORDERED: methaDONE HCL 10 MG TABLET ONE (08:53)
[2021-04-24] MEDS: METHOCARBAMOL 500 MG TABLET PO PRN ×2 (09:51→21:31)
[2021-04-24] MEDS: PRENATAL VITAMINS W/ FOLIC ACID TABLET (FP) PO SCH (09:51)
[2021-04-24] MEDS: NICOTINE 7 MG/24 HOURS TOPICAL PATCH TD SCH (09:52)
[2021-04-24] MEDS: QUEtiapine FUMARATE 100 MG TABLET (FP) PO SCH (21:31)
[2021-04-24] MEDS: THIAMINE HCL 100 MG TABLET (FP) PO SCH (21:31)
[2021-04-24] MEDS: MELATONIN 5 MG TABLETS PO SCH (21:31)
[2021-04-24] MEDS: hydrOXYzine PAMOATE 50 MG CAPSULE (FP) PO PRN (21:31)
[2021-04-25] MEDS ORDERED: methaDONE HCL 40 MG DISPERSABLE TABLET ONE (08:59)
[2021-04-25] MEDS ORDERED: methaDONE HCL 10 MG TABLET ONE (08:59)
[2021-04-25] MEDS: PRENATAL VITAMINS W/ FOLIC ACID TABLET (FP) PO SCH (09:07)
[2021-04-25] MEDS: NICOTINE 7 MG/24 HOURS TOPICAL PATCH TD SCH (09:07)
== END 2021-04-25 10:30 | disposition home or self-care (01) | DRG 772 ==
LOC: YASAS 15:04 → Y5N 15:05
PROVIDERS: ADMIT Allergy & Immunology; ATTEND Allergy & Immunology
PROC: HZ42ZZZ Group Counseling for Substance Abuse Treatment, Cognitive-Behavioral (ICD-10-PCS; principal; 2021-04-13)
DX: F10.20 Alcohol dependence, uncomplicated (principal); F11.20 Opioid dependence, uncomplicated; F13.20 Sedative, hypnotic or anxiolytic dependence, uncomplicated; F14.20 Cocaine dependence, uncomplicated; F17.210 Nicotine dependence, cigarettes, uncomplicated; F39 Unspecified mood [affective] disorder; F19.24 Other psychoactive substance dependence with psychoactive substance-induced mood disorder; F19.280 Other psychoactive substance dependence with psychoactive substance-induced anxiety disorder; F19.282 Other psychoactive substance dependence with psychoactive substance-induced sleep disorder; Z86.11 Personal history of tuberculosis; Z62.810 Personal history of physical and sexual abuse in childhood; Z86.69 Personal history of other diseases of the nervous system and sense organs; Z56.0 Unemployment, unspecified

== ENCOUNTER 2021-08-30 11:01 | Inpatient (IN) | payer OTHER ==
[2021-08-30 13:52] VITALS: BMI 22.5
[2021-08-30] MEDS ORDERED: MAGNESIUM CITRATE 300 ML BOTTLE PO PRN (14:41)
[2021-08-30] MEDS ORDERED: IBUPROFEN 400 MG TABLET (FP) PO PRN (14:41)
[2021-08-30] MEDS ORDERED: MAGNESIUM HYDROX 2400MG/30ML ORAL SUSPENSION 30 ML CUP PO PRN (14:41)
[2021-08-30] MEDS ORDERED: P-EPHED 60MG/TRIPROLIDI 2.5MG TABLET PO PRN (14:41)
[2021-08-30] MEDS ORDERED: MAG HYDROX/AL HYDROX/SIMETH 30 ML UNIT-DOSE CUP PO PRN (14:41)
[2021-08-30] MEDS ORDERED: BISMUTH SUBSALICYLATE 524 MG/30 ML PO PRN (14:41)
[2021-08-30] MEDS ORDERED: DICYCLOMINE HCL 10 MG CAPSULE PO PRN (14:41)
[2021-08-30] MEDS ORDERED: ONDANSETRON *ODT* 4 MG TABLET SL PRN (14:41)
[2021-08-30] MEDS ORDERED: NICOTINE POLACRILEX 2 MG GUM BUC PRN (14:41)
[2021-08-30] MEDS ORDERED: MENTHOL/PHENOL 1 EACH UD MM PRN (14:41)
[2021-08-30] MEDS ORDERED: ACETAMINOPHEN 325 MG TABLET (FP) PO PRN ×2 (14:41)
[2021-08-30] MEDS: MELATONIN 5 MG TABLETS PO SCH (22:45)
[2021-08-30] MEDS: THIAMINE HCL 100 MG TABLET (FP) PO SCH (22:45)
[2021-08-31 09:59] LABS: ALBUMIN 2.7 g/dl (3.4-5.0); CALCIUM 8.1 mg/dL (8.5-10.1)
[2021-08-31 10:00] LABS: BLOOD UREA NITROGEN 18.2 mg/dL (7-18); HEMATOCRIT 36.3 % (35.4-49); HEMOGLOBIN 12.6 GM/dL (11.7-16.9); MCH 30.7 pg (25.7-33.7); MCHC 34.8 g/dl (32.0-35.9); MEAN CELL VOLUME 88.2 fl (80-96); MEAN PLT VOLUME 8.7 fl (7.5-11.1); PLATELET COUNT 149 10^3/uL (134-434); RBC 4.12 M/mm3 (4.00-5.60); RDW 14.3 % (11.9-15.9); WHITE BLOOD COUNT 6.8 K/mm3 (4.0-10.0)
[2021-08-31 10:02] LABS: CREATININE 1.2 mg/dL (0.55-1.3)
[2021-08-31 10:03] LABS: BILIRUBIN,TOTAL 0.2 mg/dL (0.2-1); TOT PROT 6.1 g/dl (6.4-8.2)
[2021-08-31] MEDS: PRENATAL VITAMINS W/ FOLIC ACID TABLET (FP) PO SCH (10:45)
[2021-08-31] MEDS ORDERED: LORazepam 1 MG TABLET PO PRN (13:55)
[2021-08-31] MEDS ORDERED: LORazepam 1 MG TABLET PO ONE (13:57)
[2021-08-31] MEDS ORDERED: methaDONE HCL 10 MG TABLET PO ONE (13:58)
[2021-08-31] MEDS: METHOCARBAMOL 500 MG TABLET PO PRN (14:19)
[2021-08-31] MEDS: LORazepam 2 MG TABLET PO SCH ×2 (18:15→23:03)
[2021-08-31] MEDS: AMOXICILLIN 500 MG CAPSULE (FP) PO SCH (23:03)
[2021-08-31] MEDS: THIAMINE HCL 100 MG TABLET (FP) PO SCH (23:03)
[2021-08-31] MEDS: hydrOXYzine PAMOATE 25 MG CAPSULE (FP) PO PRN (23:03)
[2021-08-31] MEDS: MELATONIN 5 MG TABLETS PO SCH (23:03)
[2021-09-01] MEDS: LORazepam 2 MG TABLET PO SCH ×4 (06:23→22:18)
[2021-09-01] MEDS ORDERED: methaDONE HCL 10 MG TABLET PO ONE (09:25)
[2021-09-01] MEDS ORDERED: methaDONE HCL 10 MG TABLET ONE (10:45)
[2021-09-01] MEDS ORDERED: methaDONE HCL 40 MG DISPERSABLE TABLET ONE (10:45)
[2021-09-01] MEDS: AMOXICILLIN 500 MG CAPSULE (FP) PO SCH ×2 (11:10→22:18)
[2021-09-01] MEDS: PRENATAL VITAMINS W/ FOLIC ACID TABLET (FP) PO SCH (11:13)
[2021-09-01] MEDS: THIAMINE HCL 100 MG TABLET (FP) PO SCH (22:18)
[2021-09-01] MEDS: MELATONIN 5 MG TABLETS PO SCH (22:18)
[2021-09-01] MEDS: METHOCARBAMOL 500 MG TABLET PO PRN (22:23)
[2021-09-02] MEDS ORDERED: methaDONE HCL 10 MG TABLET ONE (04:27)
[2021-09-02] MEDS ORDERED: methaDONE HCL 40 MG DISPERSABLE TABLET ONE (04:28)
[2021-09-02] MEDS ORDERED: methaDONE HCL 10 MG TABLET PO SCH (06:00)
[2021-09-02] MEDS: LORazepam 1 MG TABLET PO SCH ×4 (07:09→22:24)
[2021-09-02] MEDS: METHOCARBAMOL 500 MG TABLET PO PRN ×2 (10:17→17:44)
[2021-09-02] MEDS: hydrOXYzine PAMOATE 25 MG CAPSULE (FP) PO PRN ×3 (10:17→22:24)
[2021-09-02] MEDS: AMOXICILLIN 500 MG CAPSULE (FP) PO SCH ×2 (10:17→22:24)
[2021-09-02] MEDS: PRENATAL VITAMINS W/ FOLIC ACID TABLET (FP) PO SCH (10:17)
[2021-09-02] MEDS: THIAMINE HCL 100 MG TABLET (FP) PO SCH (22:24)
[2021-09-02] MEDS: MELATONIN 5 MG TABLETS PO SCH (22:25)
[2021-09-03] MEDS ORDERED: LORazepam 0.5 MG TABLET PO PRN
[2021-09-03] MEDS ORDERED: methaDONE HCL 10 MG TABLET ONE (04:33)
[2021-09-03] MEDS ORDERED: methaDONE HCL 40 MG DISPERSABLE TABLET ONE (04:34)
[2021-09-03] MEDS: LORazepam 0.5 MG TABLET PO SCH ×4 (05:45→22:35)
[2021-09-03] MEDS: hydrOXYzine PAMOATE 25 MG CAPSULE (FP) PO PRN ×2 (10:33→17:53)
[2021-09-03] MEDS: AMOXICILLIN 500 MG CAPSULE (FP) PO SCH ×2 (10:33→22:34)
[2021-09-03] MEDS: METHOCARBAMOL 500 MG TABLET PO PRN ×2 (10:33→17:55)
[2021-09-03] MEDS: PRENATAL VITAMINS W/ FOLIC ACID TABLET (FP) PO SCH (10:33)
[2021-09-03] MEDS: MELATONIN 5 MG TABLETS PO SCH (22:34)
[2021-09-03] MEDS: THIAMINE HCL 100 MG TABLET (FP) PO SCH (22:34)
[2021-09-04] MEDS ORDERED: methaDONE HCL 10 MG TABLET ONE (04:26)
[2021-09-04] MEDS ORDERED: methaDONE HCL 40 MG DISPERSABLE TABLET ONE (04:27)
[2021-09-04] MEDS ORDERED: LORazepam 0.5 MG TABLET PO ONE (05:00)
[2021-09-04 09:37] VITALS: BP 133/88; PULSE 84; TEMP 97.8
[2021-09-04] MEDS: PRENATAL VITAMINS W/ FOLIC ACID TABLET (FP) PO SCH (09:55)
[2021-09-04] MEDS: hydrOXYzine PAMOATE 25 MG CAPSULE (FP) PO PRN (09:56)
[2021-09-04] MEDS: AMOXICILLIN 500 MG CAPSULE (FP) PO SCH (09:56)
== END 2021-09-04 12:19 | disposition other institution (70) | DRG 773 ==
LOC: YASAS 11:01 → UNDOADMIN 14:10 → Y6N 14:10
PROVIDERS: ADMIT Allergy & Immunology; ATTEND Allergy & Immunology
PROC: HZ2ZZZZ Detoxification Services for Substance Abuse Treatment (ICD-10-PCS; principal; 2021-08-30)
DX: F13.230 Sedative, hypnotic or anxiolytic dependence with withdrawal, uncomplicated (principal); F11.220 Opioid dependence with intoxication, uncomplicated; F17.210 Nicotine dependence, cigarettes, uncomplicated; R40.0 Somnolence; Z86.69 Personal history of other diseases of the nervous system and sense organs
CPT/HCPCS: 36415; 80053; 85027; 86780; C9803; U0003; U0005

== ENCOUNTER 2021-09-04 12:46 | Inpatient (IN) | payer OTHER ==
[2021-09-04] MEDS ORDERED: P-EPHED 60MG/TRIPROLIDI 2.5MG TABLET PO PRN ×2 (13:52→14:02)
[2021-09-04] MEDS ORDERED: MAG HYDROX/AL HYDROX/SIMETH 30 ML UNIT-DOSE CUP PO PRN ×2 (13:52→14:02)
[2021-09-04] MEDS ORDERED: ACETAMINOPHEN 325 MG TABLET (FP) PO PRN ×2 (13:52→14:02)
[2021-09-04] MEDS ORDERED: guaiFENesin 200 MG/10 ML 10 ML UNIT-DOSE CUPS PO PRN ×2 (13:52→14:02)
[2021-09-04] MEDS ORDERED: NICOTINE 10 MG CARTRIDGE (INHALER) IH PRN ×2 (13:52→14:02)
[2021-09-04] MEDS ORDERED: MAGNESIUM HYDROX 2400MG/30ML ORAL SUSPENSION 30 ML CUP PO PRN ×2 (13:52→14:02)
[2021-09-04] MEDS ORDERED: LOPERAMIDE HCL 2 MG CAPSULE PO PRN ×2 (13:52→14:02)
[2021-09-04] MEDS ORDERED: MAGNESIUM CITRATE 300 ML BOTTLE PO PRN ×2 (13:52→14:02)
[2021-09-04] MEDS ORDERED: hydrOXYzine PAMOATE 25 MG CAPSULE (FP) PO SCH (14:00)
[2021-09-04] MEDS ORDERED: IBUPROFEN 400 MG TABLET (FP) PO PRN (14:02)
[2021-09-04] MEDS ORDERED: MENTHOL/PHENOL 1 EACH UD MM PRN (14:02)
[2021-09-04] MEDS ORDERED: SODIUM CHLORIDE NASAL SPRAY 44 ML BOTTLE NS PRN (14:08)
[2021-09-04] MEDS: hydrOXYzine PAMOATE 25 MG CAPSULE (FP) PO PRN ×2 (17:08→21:29)
[2021-09-04] MEDS: THIAMINE HCL 100 MG TABLET (FP) PO SCH (21:25)
[2021-09-04] MEDS: AMOXICILLIN 500 MG CAPSULE (FP) PO SCH (21:26)
[2021-09-04] MEDS: CARBAMIDE PEROXIDE 6.5% OTIC 15 ML BOTTLE AD SCH (21:27)
[2021-09-04] MEDS ORDERED: MELATONIN 5 MG TABLETS PO SCH ×2 (22:00)
[2021-09-04] MEDS ORDERED: THIAMINE HCL 100 MG TABLET (FP) PO SCH (22:00)
[2021-09-05] MEDS ORDERED: methaDONE HCL 40 MG DISPERSABLE TABLET PO SCH (06:00)
[2021-09-05] MEDS ORDERED: methaDONE HCL 10 MG TABLET ONE (06:36)
[2021-09-05] MEDS: hydrOXYzine PAMOATE 25 MG CAPSULE (FP) PO PRN ×2 (06:36→21:08)
[2021-09-05] MEDS ORDERED: methaDONE HCL 40 MG DISPERSABLE TABLET ONE (06:36)
[2021-09-05 07:12] VITALS: TEMP 98.4
[2021-09-05] MEDS: AMOXICILLIN 500 MG CAPSULE (FP) PO SCH ×2 (09:38→21:08)
[2021-09-05] MEDS: CARBAMIDE PEROXIDE 6.5% OTIC 15 ML BOTTLE AD SCH ×2 (09:38→21:10)
[2021-09-05] MEDS: PRENATAL VITAMINS W/ FOLIC ACID TABLET (FP) PO SCH (09:39)
[2021-09-05] MEDS: NICOTINE 7 MG/24 HOURS TOPICAL PATCH TD SCH (09:39)
[2021-09-05] MEDS ORDERED: NICOTINE 7 MG/24 HOURS TOPICAL PATCH TD SCH (10:00)
[2021-09-05] MEDS ORDERED: PRENATAL VITAMINS W/ FOLIC ACID TABLET (FP) PO SCH (10:00)
[2021-09-05] MEDS: IBUPROFEN 400 MG TABLET (FP) PO PRN ×2 (15:08→21:10)
[2021-09-05] MEDS: THIAMINE HCL 100 MG TABLET (FP) PO SCH (21:07)
[2021-09-05] MEDS ORDERED: QUEtiapine FUMARATE 100 MG TABLET (FP) PO SCH (22:00)
[2021-09-06] MEDS ORDERED: methaDONE HCL 40 MG DISPERSABLE TABLET ONE (03:10)
[2021-09-06] MEDS ORDERED: methaDONE HCL 10 MG TABLET ONE (03:10)
[2021-09-06] MEDS: AMOXICILLIN 500 MG CAPSULE (FP) PO SCH (10:30)
[2021-09-06] MEDS: PRENATAL VITAMINS W/ FOLIC ACID TABLET (FP) PO SCH (10:30)
[2021-09-06] MEDS: hydrOXYzine PAMOATE 25 MG CAPSULE (FP) PO PRN (10:30)
[2021-09-06] MEDS: NICOTINE 7 MG/24 HOURS TOPICAL PATCH TD SCH (10:30)
[2021-09-06] MEDS: CARBAMIDE PEROXIDE 6.5% OTIC 15 ML BOTTLE AD SCH (10:31)
[2021-09-06 14:17] VITALS: BP 149/77; PULSE 73
== END 2021-09-06 18:10 | disposition left against medical advice (07) | DRG 770 ==
LOC: YASAS 12:46 → Y3W 12:47
PROVIDERS: ADMIT Allergy & Immunology; ATTEND Allergy & Immunology
PROC: HZ42ZZZ Group Counseling for Substance Abuse Treatment, Cognitive-Behavioral (ICD-10-PCS; principal; 2021-09-04)
DX: F10.20 Alcohol dependence, uncomplicated (principal); F11.20 Opioid dependence, uncomplicated; F13.20 Sedative, hypnotic or anxiolytic dependence, uncomplicated; F14.20 Cocaine dependence, uncomplicated; F12.20 Cannabis dependence, uncomplicated; F17.210 Nicotine dependence, cigarettes, uncomplicated; F19.24 Other psychoactive substance dependence with psychoactive substance-induced mood disorder; F19.282 Other psychoactive substance dependence with psychoactive substance-induced sleep disorder; F19.280 Other psychoactive substance dependence with psychoactive substance-induced anxiety disorder; F32.A Depression, unspecified; F41.9 Anxiety disorder, unspecified; H66.91 Otitis media, unspecified, right ear; H93.11 Tinnitus, right ear; Z86.69 Personal history of other diseases of the nervous system and sense organs; Z91.51 Personal history of suicidal behavior; Z56.0 Unemployment, unspecified

== ENCOUNTER 2022-07-04 20:11 | Inpatient (IN) | payer OTHER ==
[2022-07-04 21:44] VITALS: BMI 23.7
[2022-07-05] MEDS ORDERED: BENZOCAINE/MENTHOL (CHLORASEPTIC ) LOZENGE MM PRN (01:03)
[2022-07-05] MEDS ORDERED: NICOTINE POLACRILEX 2 MG GUM BUC PRN (01:03)
[2022-07-05] MEDS ORDERED: guaiFENesin 200 MG/10 ML 10 ML UNIT-DOSE CUPS PO PRN (01:03)
[2022-07-05] MEDS ORDERED: BISMUTH SUBSALICYLATE 524 MG/30 ML PO PRN (01:03)
[2022-07-05] MEDS ORDERED: MAGNESIUM CITRATE 300 ML BOTTLE PO PRN (01:03)
[2022-07-05] MEDS ORDERED: LOPERAMIDE HCL 2 MG CAPSULE PO PRN (01:03)
[2022-07-05] MEDS ORDERED: MAGNESIUM HYDROX 2400MG/30ML ORAL SUSPENSION 30 ML CUP PO PRN (01:03)
[2022-07-05] MEDS ORDERED: MAG HYDROX/AL HYDROX/SIMETH 30 ML UNIT-DOSE CUP PO PRN (01:03)
[2022-07-05] MEDS ORDERED: NALOXONE HCL (KLOXXADO) 8 MG SPRAY NS PRN (01:03)
[2022-07-05] MEDS ORDERED: IBUPROFEN 400 MG TABLET (FP) PO PRN (01:03)
[2022-07-05] MEDS ORDERED: P-EPHED 60MG/TRIPROLIDI 2.5MG TABLET PO PRN (01:03)
[2022-07-05] MEDS ORDERED: ONDANSETRON *ODT* 4 MG TABLET SL PRN (01:03)
[2022-07-05] MEDS ORDERED: DICYCLOMINE HCL 10 MG CAPSULE PO PRN (01:03)
[2022-07-05] MEDS ORDERED: ACETAMINOPHEN 325 MG TABLET (FP) PO PRN ×2 (01:03)
[2022-07-05] MEDS ORDERED: IBUPROFEN 600 MG TABLET (FP) PO PRN (01:03)
[2022-07-05] MEDS ORDERED: methaDONE HCL 10 MG TABLET PO SCH (07:45)
[2022-07-05] MEDS ORDERED: NICOTINE 21 MG/24 HOURS TOPICAL PATCH ONE (10:10)
[2022-07-05] MEDS: PRENATAL VITAMINS W/ FOLIC ACID TABLET (FP) PO SCH (10:17)
[2022-07-05] MEDS: NICOTINE 21 MG/24 HOURS TOPICAL PATCH TD SCH (10:17)
[2022-07-05 12:23] LABS: HEMOGLOBIN 12.6 GM/dL (11.7-16.9); MCH 30.4 pg (25.7-33.7); MEAN CELL VOLUME 89.3 fl (80-96); PLATELET COUNT 203 10^3/uL (134-434); RBC 4.15 M/mm3 (4.00-5.60); RDW 14.4 % (11.9-15.9); WHITE BLOOD COUNT 3.8 K/mm3 (4.0-10.0)
[2022-07-05 12:41] LABS: CALCIUM 8.6 mg/dL (8.5-10.1)
[2022-07-05 12:42] LABS: ALBUMIN 3.1 g/dl (3.4-5.0); BLOOD UREA NITROGEN 14.8 mg/dL (7-18)
[2022-07-05 12:45] LABS: CREATININE 1.1 mg/dL (0.55-1.3)
[2022-07-05 12:46] LABS: BILIRUBIN,TOTAL 0.2 mg/dL (0.2-1); TOT PROT 6.3 g/dl (6.4-8.2)
[2022-07-05] MEDS ORDERED: LORazepam 1 MG TABLET PO PRN (15:26)
[2022-07-05 17:12] LABS: URINE APPEARANCE CLEAR; URINE BILIRUBIN NEGATIVE (NEGATIVE); URINE COLOR YELLOW; URINE GLUCOSE (UA) NEGATIVE (NEGATIVE); URINE KETONE NEGATIVE (NEGATIVE); URINE LEUK ESTERASE NEGATIVE (NEGATIVE); URINE NITRITE NEGATIVE (NEGATIVE); URINE PROTEIN NEGATIVE (NEGATIVE); URINE UROBILINOGEN 0.2 mg/dL (0.2-1.0)
[2022-07-05 17:20] LABS: OPIATES, URI NEGATIVE (NEGATIVE)
[2022-07-05 17:21] LABS: URINE BARBITURATES NEGATIVE (NEGATIVE); URINE BENZODIAZEPINES NEGATIVE (NEGATIVE)
[2022-07-05 17:40] LABS: COCAINE, UR POSITIVE (NEGATIVE); METHADONE, UR POSITIVE (NEGATIVE); PHENCYCLIDINE,URINE NEGATIVE (NEGATIVE); URINE AMPHETAMINES NEGATIVE (NEGATIVE)
[2022-07-05] MEDS: LORazepam 2 MG TABLET PO SCH ×2 (18:42→22:49)
[2022-07-05] MEDS: METHOCARBAMOL 500 MG TABLET PO PRN (18:42)
[2022-07-05] MEDS: THIAMINE HCL 100 MG TABLET (FP) PO SCH (22:49)
[2022-07-05] MEDS: MELATONIN 5 MG TABLETS PO SCH (22:49)
[2022-07-06] MEDS: LORazepam 2 MG TABLET PO SCH ×4 (06:40→23:06)
[2022-07-06] MEDS ORDERED: methaDONE HCL 10 MG TABLET PO SCH (09:15)
[2022-07-06] MEDS: hydrOXYzine PAMOATE 25 MG CAPSULE (FP) PO PRN ×2 (10:10→18:29)
[2022-07-06] MEDS: PRENATAL VITAMINS W/ FOLIC ACID TABLET (FP) PO SCH (10:10)
[2022-07-06] MEDS: NICOTINE 21 MG/24 HOURS TOPICAL PATCH TD SCH (10:10)
[2022-07-06] MEDS: MELATONIN 5 MG TABLETS PO SCH (23:05)
[2022-07-06] MEDS: THIAMINE HCL 100 MG TABLET (FP) PO SCH (23:06)
[2022-07-07] MEDS: LORazepam 1 MG TABLET PO SCH ×4 (07:07→22:41)
[2022-07-07] MEDS: PRENATAL VITAMINS W/ FOLIC ACID TABLET (FP) PO SCH (10:28)
[2022-07-07] MEDS: METHOCARBAMOL 500 MG TABLET PO PRN (10:30)
[2022-07-07] MEDS: hydrOXYzine PAMOATE 25 MG CAPSULE (FP) PO PRN ×2 (10:30→22:41)
[2022-07-07] MEDS: NICOTINE 21 MG/24 HOURS TOPICAL PATCH TD SCH (10:32)
[2022-07-07 16:52] LABS: ALBUMIN 3.5 g/dl (3.4-5.0)
[2022-07-07 16:54] LABS: BILIRUBIN,DIRECT 0.1 mg/dL (0.0-0.2)
[2022-07-07 16:56] LABS: BILIRUBIN,TOTAL 0.3 mg/dL (0.2-1)
[2022-07-07 16:57] LABS: TOT PROT 7.2 g/dl (6.4-8.2)
[2022-07-07] MEDS: MELATONIN 5 MG TABLETS PO SCH (22:40)
[2022-07-07] MEDS: THIAMINE HCL 100 MG TABLET (FP) PO SCH (22:40)
[2022-07-08] MEDS ORDERED: LORazepam 0.5 MG TABLET PO PRN
[2022-07-08] MEDS: LORazepam 0.5 MG TABLET PO SCH ×4 (05:54→23:33)
[2022-07-08] MEDS: PRENATAL VITAMINS W/ FOLIC ACID TABLET (FP) PO SCH (11:17)
[2022-07-08] MEDS: NICOTINE 21 MG/24 HOURS TOPICAL PATCH TD SCH (11:18)
[2022-07-08] MEDS: hydrOXYzine PAMOATE 25 MG CAPSULE (FP) PO PRN (23:32)
[2022-07-08] MEDS: MELATONIN 5 MG TABLETS PO SCH (23:32)
[2022-07-08] MEDS: THIAMINE HCL 100 MG TABLET (FP) PO SCH (23:32)
[2022-07-08] MEDS: METHOCARBAMOL 500 MG TABLET PO PRN (23:33)
[2022-07-09] MEDS ORDERED: LORazepam 0.5 MG TABLET PO ONE (05:00)
[2022-07-09] MEDS: NICOTINE 21 MG/24 HOURS TOPICAL PATCH TD SCH (10:45)
[2022-07-09] MEDS: PRENATAL VITAMINS W/ FOLIC ACID TABLET (FP) PO SCH (10:45)
[2022-07-09] MEDS: METHOCARBAMOL 500 MG TABLET PO PRN ×2 (10:46→23:01)
[2022-07-09] MEDS: hydrOXYzine PAMOATE 25 MG CAPSULE (FP) PO PRN ×2 (10:46→22:59)
[2022-07-09 16:22] LABS: CALCIUM 9.1 mg/dL (8.5-10.1)
[2022-07-09 16:23] LABS: ALBUMIN 3.5 g/dl (3.4-5.0); BLOOD UREA NITROGEN 19.7 mg/dL (7-18)
[2022-07-09 16:27] LABS: BILIRUBIN,TOTAL 0.7 mg/dL (0.2-1)
[2022-07-09 16:28] LABS: TOT PROT 7.6 g/dl (6.4-8.2)
[2022-07-09] MEDS: THIAMINE HCL 100 MG TABLET (FP) PO SCH (22:59)
[2022-07-09] MEDS: MELATONIN 5 MG TABLETS PO SCH (22:59)
[2022-07-10 08:52] VITALS: BP 96/58; PULSE 77; RESP 18; TEMP 98.1
[2022-07-10] MEDS: NICOTINE 21 MG/24 HOURS TOPICAL PATCH TD SCH (10:37)
[2022-07-10] MEDS: PRENATAL VITAMINS W/ FOLIC ACID TABLET (FP) PO SCH (10:37)
== END 2022-07-10 10:48 | disposition home or self-care (01) | DRG 773 ==
LOC: YASAS 20:11 → Y3N 07-05 12:48
PROVIDERS: ADMIT Allergy & Immunology; ATTEND Surgery
PROC: HZ2ZZZZ Detoxification Services for Substance Abuse Treatment (ICD-10-PCS; principal; 2022-07-05)
DX: F13.232 Sedative, hypnotic or anxiolytic dependence with withdrawal with perceptual disturbance (principal); F11.20 Opioid dependence, uncomplicated; F10.20 Alcohol dependence, uncomplicated; F14.20 Cocaine dependence, uncomplicated; F12.20 Cannabis dependence, uncomplicated; F17.210 Nicotine dependence, cigarettes, uncomplicated; F19.24 Other psychoactive substance dependence with psychoactive substance-induced mood disorder; F31.9 Bipolar disorder, unspecified; F41.9 Anxiety disorder, unspecified; F32.A Depression, unspecified; B19.10 Unspecified viral hepatitis B without hepatic coma; B18.2 Chronic viral hepatitis C; R40.0 Somnolence; R74.8 Abnormal levels of other serum enzymes; Z86.69 Personal history of other diseases of the nervous system and sense organs; Z20.822 Contact with and (suspected) exposure to COVID-19
CPT/HCPCS: 36415; 80053; 80076; 80307; 81003; 85027; 86780; 86803; 87517; 87522; C9803-CS; U0003; U0005

== ENCOUNTER 2022-07-23 11:01 | Inpatient (IN) | payer OTHER ==
[2022-07-23 11:58] VITALS: BMI 20.2
[2022-07-23] MEDS ORDERED: LOPERAMIDE HCL 2 MG CAPSULE PO PRN (13:09)
[2022-07-23] MEDS ORDERED: LORazepam 1 MG TABLET PO PRN (13:09)
[2022-07-23] MEDS ORDERED: BENZOCAINE/MENTHOL (CHLORASEPTIC ) LOZENGE MM PRN (13:09)
[2022-07-23] MEDS ORDERED: IBUPROFEN 600 MG TABLET (FP) PO PRN (13:09)
[2022-07-23] MEDS ORDERED: NALOXONE HCL (KLOXXADO) 8 MG SPRAY NS PRN (13:09)
[2022-07-23] MEDS ORDERED: ONDANSETRON *ODT* 4 MG TABLET SL PRN (13:09)
[2022-07-23] MEDS ORDERED: NICOTINE 21 MG/24 HOURS TOPICAL PATCH TD PRN (13:09)
[2022-07-23] MEDS ORDERED: DICYCLOMINE HCL 10 MG CAPSULE PO PRN (13:09)
[2022-07-23] MEDS ORDERED: IBUPROFEN 400 MG TABLET (FP) PO PRN (13:09)
[2022-07-23] MEDS ORDERED: MAGNESIUM CITRATE 300 ML BOTTLE PO PRN (13:09)
[2022-07-23] MEDS ORDERED: MAGNESIUM HYDROX 2400MG/30ML ORAL SUSPENSION 30 ML CUP PO PRN (13:09)
[2022-07-23] MEDS ORDERED: ACETAMINOPHEN 325 MG TABLET (FP) PO PRN ×2 (13:09)
[2022-07-23] MEDS ORDERED: MAG HYDROX/AL HYDROX/SIMETH 30 ML UNIT-DOSE CUP PO PRN (13:09)
[2022-07-23] MEDS ORDERED: BISMUTH SUBSALICYLATE 524 MG/30 ML PO PRN (13:09)
[2022-07-23] MEDS ORDERED: NICOTINE POLACRILEX 4 MG GUM BUC PRN (13:09)
[2022-07-23] MEDS ORDERED: NICOTINE 10 MG CARTRIDGE (INHALER) IH PRN (13:09)
[2022-07-23 15:34] LABS: HEMATOCRIT 33.8 % (35.4-49); HEMOGLOBIN 11.4 GM/dL (11.7-16.9); MCH 29.8 pg (25.7-33.7); MCHC 33.7 g/dl (32.0-35.9); MEAN CELL VOLUME 88.6 fl (80-96); MEAN PLT VOLUME 8.6 fl (7.5-11.1); PLATELET COUNT 325 10^3/uL (134-434); RBC 3.81 M/mm3 (4.00-5.60); RDW 13.9 % (11.9-15.9); WHITE BLOOD COUNT 6.2 K/mm3 (4.0-10.0)
[2022-07-23] MEDS: hydrOXYzine PAMOATE 25 MG CAPSULE (FP) PO PRN (15:40)
[2022-07-23 15:42] LABS: ALBUMIN 3.1 g/dl (3.4-5.0); CALCIUM 8.9 mg/dL (8.5-10.1)
[2022-07-23 15:46] LABS: BILIRUBIN,TOTAL 0.4 mg/dL (0.2-1); TOT PROT 6.8 g/dl (6.4-8.2)
[2022-07-23] MEDS: LORazepam 2 MG TABLET PO SCH ×2 (20:54→23:05)
[2022-07-23] MEDS: MELATONIN 5 MG TABLETS PO SCH (23:05)
[2022-07-23] MEDS: METHOCARBAMOL 500 MG TABLET PO PRN (23:05)
[2022-07-23] MEDS: THIAMINE HCL 100 MG TABLET (FP) PO SCH (23:05)
[2022-07-24] MEDS: LORazepam 2 MG TABLET PO SCH ×4 (05:51→22:19)
[2022-07-24] MEDS: PRENATAL VITAMINS W/ FOLIC ACID TABLET (FP) PO SCH (10:42)
[2022-07-24] MEDS: hydrOXYzine PAMOATE 25 MG CAPSULE (FP) PO PRN (10:43)
[2022-07-24] MEDS ORDERED: methaDONE HCL 40 MG DISPERSABLE TABLET PO SCH (12:00)
[2022-07-24] MEDS: METHOCARBAMOL 500 MG TABLET PO PRN (17:30)
[2022-07-24] MEDS: THIAMINE HCL 100 MG TABLET (FP) PO SCH (22:19)
[2022-07-24] MEDS: MELATONIN 5 MG TABLETS PO SCH (22:19)
[2022-07-25] MEDS: LORazepam 1 MG TABLET PO SCH ×4 (06:16→22:31)
[2022-07-25] MEDS: PRENATAL VITAMINS W/ FOLIC ACID TABLET (FP) PO SCH (10:47)
[2022-07-25] MEDS: hydrOXYzine PAMOATE 25 MG CAPSULE (FP) PO PRN ×2 (10:47→22:32)
[2022-07-25] MEDS: METHOCARBAMOL 500 MG TABLET PO PRN ×2 (10:47→18:01)
[2022-07-25] MEDS: THIAMINE HCL 100 MG TABLET (FP) PO SCH (22:31)
[2022-07-25] MEDS: MELATONIN 5 MG TABLETS PO SCH (22:31)
[2022-07-26] MEDS ORDERED: LORazepam 0.5 MG TABLET PO PRN
[2022-07-26] MEDS: METHOCARBAMOL 500 MG TABLET PO PRN ×2 (05:38→17:55)
[2022-07-26] MEDS: LORazepam 0.5 MG TABLET PO SCH ×4 (05:38→22:22)
[2022-07-26] MEDS: PRENATAL VITAMINS W/ FOLIC ACID TABLET (FP) PO SCH (10:25)
[2022-07-26] MEDS: hydrOXYzine PAMOATE 25 MG CAPSULE (FP) PO PRN ×2 (10:27→17:55)
[2022-07-26] MEDS: MELATONIN 5 MG TABLETS PO SCH (22:23)
[2022-07-26] MEDS: THIAMINE HCL 100 MG TABLET (FP) PO SCH (22:23)
[2022-07-27] MEDS: hydrOXYzine PAMOATE 25 MG CAPSULE (FP) PO PRN ×2 (00:48→22:12)
[2022-07-27] MEDS: METHOCARBAMOL 500 MG TABLET PO PRN ×2 (00:48→22:12)
[2022-07-27] MEDS ORDERED: LORazepam 0.5 MG TABLET PO ONE (05:00)
[2022-07-27] MEDS: PRENATAL VITAMINS W/ FOLIC ACID TABLET (FP) PO SCH (09:59)
[2022-07-27 14:00] LABS: ALBUMIN 3.2 g/dl (3.4-5.0)
[2022-07-27 14:02] LABS: BILIRUBIN,DIRECT 0.2 mg/dL (0.0-0.2)
[2022-07-27 14:04] LABS: BILIRUBIN,TOTAL 0.3 mg/dL (0.2-1); TOT PROT 7.2 g/dl (6.4-8.2)
[2022-07-27] MEDS ORDERED: QUEtiapine FUMARATE 100 MG TABLET (FP) PO SCH (22:00)
[2022-07-27] MEDS: THIAMINE HCL 100 MG TABLET (FP) PO SCH (22:11)
[2022-07-27] MEDS: MELATONIN 5 MG TABLETS PO SCH (22:11)
[2022-07-28] MEDS ORDERED: LORazepam 0.5 MG TABLET PO ONE (06:00)
[2022-07-28] MEDS: PRENATAL VITAMINS W/ FOLIC ACID TABLET (FP) PO SCH (10:27)
[2022-07-28] MEDS: hydrOXYzine PAMOATE 25 MG CAPSULE (FP) PO PRN (10:28)
[2022-07-28] MEDS: METHOCARBAMOL 500 MG TABLET PO PRN (10:28)
[2022-07-28 13:08] VITALS: BP 97/63; PULSE 79; RESP 18; TEMP 97.3
== END 2022-07-28 14:25 | disposition other institution (70) | DRG 773 ==
LOC: YASAS 11:01 → Y3N 13:34
PROVIDERS: ADMIT Allergy & Immunology; ATTEND Psychiatry & Neurology Psychiatry
PROC: HZ2ZZZZ Detoxification Services for Substance Abuse Treatment (ICD-10-PCS; principal; 2022-07-23)
DX: F10.20 Alcohol dependence, uncomplicated (principal); F13.232 Sedative, hypnotic or anxiolytic dependence with withdrawal with perceptual disturbance; F11.20 Opioid dependence, uncomplicated; F14.20 Cocaine dependence, uncomplicated; F12.20 Cannabis dependence, uncomplicated; F17.210 Nicotine dependence, cigarettes, uncomplicated; F19.24 Other psychoactive substance dependence with psychoactive substance-induced mood disorder; F31.9 Bipolar disorder, unspecified; D64.9 Anemia, unspecified; I95.9 Hypotension, unspecified; R76.11 Nonspecific reaction to tuberculin skin test without active tuberculosis; R74.8 Abnormal levels of other serum enzymes; R73.9 Hyperglycemia, unspecified; Z62.810 Personal history of physical and sexual abuse in childhood; Z86.19 Personal history of other infectious and parasitic diseases; Z28.310 Unvaccinated for COVID-19; Z28.9 Immunization not carried out for unspecified reason; Z91.199 Patient's noncompliance with other medical treatment and regimen due to unspecified reason
CPT/HCPCS: 36415; 80053; 80076; 82947; 84450; 84460; 85027; 86780; 87522; C9803-CS; U0003; U0005

== ENCOUNTER 2022-07-28 14:28 | Inpatient (IN) | payer OTHER ==
[2022-07-28 15:18] VITALS: RESP 18
[2022-07-28] MEDS ORDERED: guaiFENesin 200 MG/10 ML 10 ML UNIT-DOSE CUPS PO PRN (16:08)
[2022-07-28] MEDS ORDERED: LOPERAMIDE HCL 2 MG CAPSULE PO PRN (16:08)
[2022-07-28] MEDS ORDERED: NICOTINE 10 MG CARTRIDGE (INHALER) IH PRN (16:08)
[2022-07-28] MEDS ORDERED: P-EPHED 60MG/TRIPROLIDI 2.5MG TABLET PO PRN (16:08)
[2022-07-28] MEDS ORDERED: BENZOCAINE/MENTHOL (CHLORASEPTIC ) LOZENGE MM PRN (16:08)
[2022-07-28] MEDS ORDERED: ACETAMINOPHEN 325 MG TABLET (FP) PO PRN (16:08)
[2022-07-28] MEDS ORDERED: MAGNESIUM CITRATE 300 ML BOTTLE PO PRN (16:08)
[2022-07-28] MEDS ORDERED: MAG HYDROX/AL HYDROX/SIMETH 30 ML UNIT-DOSE CUP PO PRN (16:08)
[2022-07-28] MEDS ORDERED: MAGNESIUM HYDROX 2400MG/30ML ORAL SUSPENSION 30 ML CUP PO PRN (16:08)
[2022-07-28] MEDS ORDERED: NALOXONE (NARCAN) HCL 4 MG/0.1 ML SPRAY NS SCH (16:15)
[2022-07-28] MEDS: MELATONIN 5 MG TABLETS PO SCH (21:17)
[2022-07-28] MEDS: THIAMINE HCL 100 MG TABLET (FP) PO SCH (21:17)
[2022-07-28] MEDS: hydrOXYzine PAMOATE 25 MG CAPSULE (FP) PO PRN (21:19)
[2022-07-28] MEDS: QUEtiapine FUMARATE 100 MG TABLET (FP) PO SCH (21:19)
[2022-07-28] MEDS: IBUPROFEN 400 MG TABLET (FP) PO PRN (21:19)
[2022-07-29] MEDS: PRENATAL VITAMINS W/ FOLIC ACID TABLET (FP) PO SCH (09:54)
[2022-07-29] MEDS: IBUPROFEN 400 MG TABLET (FP) PO PRN (09:55)
[2022-07-29] MEDS: hydrOXYzine PAMOATE 25 MG CAPSULE (FP) PO PRN ×2 (09:55→21:32)
[2022-07-29] MEDS: NICOTINE 21 MG/24 HOURS TOPICAL PATCH TD SCH (09:56)
[2022-07-29] MEDS ORDERED: methaDONE HCL 40 MG DISPERSABLE TABLET PO SCH (10:00)
[2022-07-29] MEDS ORDERED: FLU VACC QS2022-23(6MOS UP)/PF 60 MCG/0.5 ML SYRINGE IM ONE (12:00)
[2022-07-29] MEDS: QUEtiapine FUMARATE 100 MG TABLET (FP) PO SCH (21:31)
[2022-07-29] MEDS: MELATONIN 5 MG TABLETS PO SCH (21:31)
[2022-07-29] MEDS: THIAMINE HCL 100 MG TABLET (FP) PO SCH (21:31)
[2022-07-29] MEDS: METHOCARBAMOL 500 MG TABLET PO PRN (21:32)
[2022-07-30] MEDS: NICOTINE 21 MG/24 HOURS TOPICAL PATCH TD SCH (10:30)
[2022-07-30] MEDS: PRENATAL VITAMINS W/ FOLIC ACID TABLET (FP) PO SCH (10:30)
[2022-07-30] MEDS: hydrOXYzine PAMOATE 25 MG CAPSULE (FP) PO PRN ×2 (10:31→21:56)
[2022-07-30] MEDS: METHOCARBAMOL 500 MG TABLET PO PRN ×2 (10:31→21:56)
[2022-07-30] MEDS ORDERED: SODIUM CHLORIDE NASAL SPRAY 44 ML BOTTLE NS PRN (14:32)
[2022-07-30] MEDS: LACTULOSE 20 GM/30 ML UDC (FOR ORAL USE ONLY) PO SCH ×2 (14:33→21:50)
[2022-07-30] MEDS: QUEtiapine FUMARATE 100 MG TABLET (FP) PO SCH (21:50)
[2022-07-30] MEDS: THIAMINE HCL 100 MG TABLET (FP) PO SCH (21:50)
[2022-07-30] MEDS: MELATONIN 5 MG TABLETS PO SCH (21:50)
[2022-07-31] MEDS: LACTULOSE 20 GM/30 ML UDC (FOR ORAL USE ONLY) PO SCH ×3 (06:27→21:14)
[2022-07-31] MEDS: PRENATAL VITAMINS W/ FOLIC ACID TABLET (FP) PO SCH (10:38)
[2022-07-31] MEDS: NICOTINE 21 MG/24 HOURS TOPICAL PATCH TD SCH (10:38)
[2022-07-31] MEDS: hydrOXYzine PAMOATE 25 MG CAPSULE (FP) PO PRN (10:39)
[2022-07-31] MEDS: METHOCARBAMOL 500 MG TABLET PO PRN ×2 (10:39→21:14)
[2022-07-31] MEDS: QUEtiapine FUMARATE 100 MG TABLET (FP) PO SCH (21:14)
[2022-07-31] MEDS: MELATONIN 5 MG TABLETS PO SCH (21:14)
[2022-07-31] MEDS: THIAMINE HCL 100 MG TABLET (FP) PO SCH (21:14)
[2022-08-01] MEDS: LACTULOSE 20 GM/30 ML UDC (FOR ORAL USE ONLY) PO SCH ×3 (06:40→21:48)
[2022-08-01] MEDS: PRENATAL VITAMINS W/ FOLIC ACID TABLET (FP) PO SCH (10:45)
[2022-08-01] MEDS: hydrOXYzine PAMOATE 25 MG CAPSULE (FP) PO PRN ×2 (10:46→21:47)
[2022-08-01] MEDS: METHOCARBAMOL 500 MG TABLET PO PRN ×2 (10:46→21:47)
[2022-08-01] MEDS: NICOTINE 21 MG/24 HOURS TOPICAL PATCH TD SCH (10:47)
[2022-08-01] MEDS: THIAMINE HCL 100 MG TABLET (FP) PO SCH (21:46)
[2022-08-01] MEDS: QUEtiapine FUMARATE 100 MG TABLET (FP) PO SCH (21:46)
[2022-08-01] MEDS: MELATONIN 5 MG TABLETS PO SCH (21:46)
[2022-08-02] MEDS: LACTULOSE 20 GM/30 ML UDC (FOR ORAL USE ONLY) PO SCH ×3 (06:06→21:26)
[2022-08-02] MEDS: PRENATAL VITAMINS W/ FOLIC ACID TABLET (FP) PO SCH (10:00)
[2022-08-02] MEDS: NICOTINE 21 MG/24 HOURS TOPICAL PATCH TD SCH (10:00)
[2022-08-02] MEDS: hydrOXYzine PAMOATE 25 MG CAPSULE (FP) PO PRN ×2 (14:27→21:26)
[2022-08-02] MEDS: METHOCARBAMOL 500 MG TABLET PO PRN ×2 (14:27→21:26)
[2022-08-02] MEDS: QUEtiapine FUMARATE 100 MG TABLET (FP) PO SCH (21:25)
[2022-08-02] MEDS: MELATONIN 5 MG TABLETS PO SCH (21:25)
[2022-08-02] MEDS: THIAMINE HCL 100 MG TABLET (FP) PO SCH (21:25)
[2022-08-03] MEDS: LACTULOSE 20 GM/30 ML UDC (FOR ORAL USE ONLY) PO SCH ×3 (06:34→22:07)
[2022-08-03] MEDS: NICOTINE 21 MG/24 HOURS TOPICAL PATCH TD SCH (10:49)
[2022-08-03] MEDS: METHOCARBAMOL 500 MG TABLET PO PRN ×2 (10:50→21:59)
[2022-08-03] MEDS: hydrOXYzine PAMOATE 25 MG CAPSULE (FP) PO PRN ×2 (10:50→21:58)
[2022-08-03] MEDS: PRENATAL VITAMINS W/ FOLIC ACID TABLET (FP) PO SCH (10:50)
[2022-08-03] MEDS: MELATONIN 5 MG TABLETS PO SCH (21:58)
[2022-08-03] MEDS: QUEtiapine FUMARATE 100 MG TABLET (FP) PO SCH (21:58)
[2022-08-03] MEDS: THIAMINE HCL 100 MG TABLET (FP) PO SCH (22:07)
[2022-08-04] MEDS: LACTULOSE 20 GM/30 ML UDC (FOR ORAL USE ONLY) PO SCH ×3 (06:31→21:31)
[2022-08-04] MEDS: NICOTINE 21 MG/24 HOURS TOPICAL PATCH TD SCH (10:54)
[2022-08-04] MEDS: PRENATAL VITAMINS W/ FOLIC ACID TABLET (FP) PO SCH (10:54)
[2022-08-04] MEDS: METHOCARBAMOL 500 MG TABLET PO PRN ×2 (10:55→21:30)
[2022-08-04] MEDS: hydrOXYzine PAMOATE 25 MG CAPSULE (FP) PO PRN ×2 (10:55→21:30)
[2022-08-04] MEDS: QUEtiapine FUMARATE 100 MG TABLET (FP) PO SCH (21:30)
[2022-08-04] MEDS: MELATONIN 5 MG TABLETS PO SCH (21:30)
[2022-08-04] MEDS: THIAMINE HCL 100 MG TABLET (FP) PO SCH (21:30)
[2022-08-05] MEDS: LACTULOSE 20 GM/30 ML UDC (FOR ORAL USE ONLY) PO SCH ×3 (06:21→21:05)
[2022-08-05] MEDS: hydrOXYzine PAMOATE 25 MG CAPSULE (FP) PO PRN ×2 (10:48→21:04)
[2022-08-05] MEDS: NICOTINE 21 MG/24 HOURS TOPICAL PATCH TD SCH (10:48)
[2022-08-05] MEDS: METHOCARBAMOL 500 MG TABLET PO PRN ×2 (10:48→21:04)
[2022-08-05] MEDS: PRENATAL VITAMINS W/ FOLIC ACID TABLET (FP) PO SCH (10:48)
[2022-08-05] MEDS: QUEtiapine FUMARATE 100 MG TABLET (FP) PO SCH (21:04)
[2022-08-05] MEDS: THIAMINE HCL 100 MG TABLET (FP) PO SCH (21:04)
[2022-08-05] MEDS: MELATONIN 5 MG TABLETS PO SCH (21:04)
[2022-08-06] MEDS: LACTULOSE 20 GM/30 ML UDC (FOR ORAL USE ONLY) PO SCH (06:36)
[2022-08-06] MEDS: NICOTINE 21 MG/24 HOURS TOPICAL PATCH TD SCH (10:35)
[2022-08-06] MEDS: PRENATAL VITAMINS W/ FOLIC ACID TABLET (FP) PO SCH (10:35)
[2022-08-06] MEDS: hydrOXYzine PAMOATE 25 MG CAPSULE (FP) PO PRN ×2 (10:36→21:29)
[2022-08-06] MEDS: METHOCARBAMOL 500 MG TABLET PO PRN ×2 (10:36→21:29)
[2022-08-06] MEDS: MELATONIN 5 MG TABLETS PO SCH (21:29)
[2022-08-06] MEDS: THIAMINE HCL 100 MG TABLET (FP) PO SCH (21:29)
[2022-08-06] MEDS: QUEtiapine FUMARATE 100 MG TABLET (FP) PO SCH (21:29)
[2022-08-07] MEDS: METHOCARBAMOL 500 MG TABLET PO PRN ×2 (10:50→21:16)
[2022-08-07] MEDS: PRENATAL VITAMINS W/ FOLIC ACID TABLET (FP) PO SCH (10:51)
[2022-08-07] MEDS: hydrOXYzine PAMOATE 25 MG CAPSULE (FP) PO PRN ×2 (10:51→21:16)
[2022-08-07] MEDS: NICOTINE 21 MG/24 HOURS TOPICAL PATCH TD SCH (10:51)
[2022-08-07] MEDS: MELATONIN 5 MG TABLETS PO SCH (21:16)
[2022-08-07] MEDS: QUEtiapine FUMARATE 100 MG TABLET (FP) PO SCH (21:16)
[2022-08-07] MEDS: THIAMINE HCL 100 MG TABLET (FP) PO SCH (21:16)
[2022-08-08] MEDS: PRENATAL VITAMINS W/ FOLIC ACID TABLET (FP) PO SCH (09:59)
[2022-08-08] MEDS: hydrOXYzine PAMOATE 25 MG CAPSULE (FP) PO PRN ×2 (10:00→21:19)
[2022-08-08] MEDS: METHOCARBAMOL 500 MG TABLET PO PRN ×2 (10:00→21:18)
[2022-08-08] MEDS: NICOTINE 21 MG/24 HOURS TOPICAL PATCH TD SCH (10:01)
[2022-08-08] MEDS ORDERED: QUEtiapine FUMARATE 50 MG TABLET ONE (18:56)
[2022-08-08] MEDS: THIAMINE HCL 100 MG TABLET (FP) PO SCH (21:18)
[2022-08-08] MEDS: MELATONIN 5 MG TABLETS PO SCH (21:18)
[2022-08-08] MEDS: QUEtiapine FUMARATE 100 MG TABLET (FP) PO SCH (21:18)
[2022-08-09] MEDS: NICOTINE 21 MG/24 HOURS TOPICAL PATCH TD SCH (10:27)
[2022-08-09] MEDS: METHOCARBAMOL 500 MG TABLET PO PRN ×2 (10:27→21:08)
[2022-08-09] MEDS: PRENATAL VITAMINS W/ FOLIC ACID TABLET (FP) PO SCH (10:27)
[2022-08-09] MEDS: hydrOXYzine PAMOATE 25 MG CAPSULE (FP) PO PRN ×2 (10:27→21:08)
[2022-08-09] MEDS: QUEtiapine FUMARATE 100 MG TABLET (FP) PO SCH (21:08)
[2022-08-09] MEDS: THIAMINE HCL 100 MG TABLET (FP) PO SCH (21:09)
[2022-08-09] MEDS: MELATONIN 5 MG TABLETS PO SCH (21:09)
[2022-08-10] MEDS: PRENATAL VITAMINS W/ FOLIC ACID TABLET (FP) PO SCH (09:38)
[2022-08-10] MEDS: METHOCARBAMOL 500 MG TABLET PO PRN ×2 (09:38→21:32)
[2022-08-10] MEDS: hydrOXYzine PAMOATE 25 MG CAPSULE (FP) PO PRN ×2 (09:38→21:32)
[2022-08-10] MEDS: NICOTINE 21 MG/24 HOURS TOPICAL PATCH TD SCH (09:39)
[2022-08-10] MEDS ORDERED: NICOTINE 21 MG/24 HOURS TOPICAL PATCH TD PRN (12:37)
[2022-08-10] MEDS: QUEtiapine FUMARATE 100 MG TABLET (FP) PO SCH (21:32)
[2022-08-10] MEDS: MELATONIN 5 MG TABLETS PO SCH (21:32)
[2022-08-10] MEDS: THIAMINE HCL 100 MG TABLET (FP) PO SCH (21:32)
[2022-08-11 07:16] VITALS: BP 114/81; PULSE 78; TEMP 98.2
== END 2022-08-11 08:49 | disposition home or self-care (01) | DRG 772 ==
LOC: YASAS 14:28 → Y3W 14:30
PROVIDERS: ADMIT Allergy & Immunology; ATTEND Psychiatry & Neurology Pain Medicine
PROC: HZ42ZZZ Group Counseling for Substance Abuse Treatment, Cognitive-Behavioral (ICD-10-PCS; principal; 2022-07-28)
DX: F13.20 Sedative, hypnotic or anxiolytic dependence, uncomplicated (principal); F11.20 Opioid dependence, uncomplicated; F17.210 Nicotine dependence, cigarettes, uncomplicated; F19.282 Other psychoactive substance dependence with psychoactive substance-induced sleep disorder; F19.280 Other psychoactive substance dependence with psychoactive substance-induced anxiety disorder; F19.24 Other psychoactive substance dependence with psychoactive substance-induced mood disorder; B19.10 Unspecified viral hepatitis B without hepatic coma; B19.20 Unspecified viral hepatitis C without hepatic coma; R79.89 Other specified abnormal findings of blood chemistry; Z86.69 Personal history of other diseases of the nervous system and sense organs
CPT/HCPCS: 82140; 93005; 93010; G0008; Q2036

== ENCOUNTER 2023-05-21 09:04 | Inpatient (IN) | payer OTHER ==
[2023-05-21 10:36] VITALS: BMI 23.7
[2023-05-21] MEDS ORDERED: ACETAMINOPHEN 325 MG TABLET (FP) PO PRN (11:37)
[2023-05-21] MEDS ORDERED: guaiFENesin 600 MG TABLET.ER (FP) PO PRN (11:37)
[2023-05-21] MEDS ORDERED: NICOTINE POLACRILEX 2 MG GUM BUC PRN (11:37)
[2023-05-21] MEDS ORDERED: ONDANSETRON *ODT* 4 MG TABLET SL PRN (11:37)
[2023-05-21] MEDS ORDERED: LOPERAMIDE HCL 2 MG CAPSULE PO PRN (11:37)
[2023-05-21] MEDS ORDERED: NALOXONE HCL (KLOXXADO) 8 MG SPRAY NS PRN (11:37)
[2023-05-21] MEDS ORDERED: MAG HYDROX/AL HYDROX/SIMETH 30 ML UNIT-DOSE CUP PO PRN (11:37)
[2023-05-21] MEDS ORDERED: IBUPROFEN 400 MG TABLET (FP) PO PRN (11:37)
[2023-05-21] MEDS ORDERED: NALOXONE HCL 0.4 MG/ML VIAL IM PRN (11:37)
[2023-05-21] MEDS ORDERED: MAGNESIUM HYDROX 2400MG/30ML ORAL SUSPENSION 30 ML CUP PO PRN (11:37)
[2023-05-21] MEDS ORDERED: DICYCLOMINE HCL 10 MG CAPSULE PO PRN (11:37)
[2023-05-21] MEDS ORDERED: POLYETHYLENE GLYCOL (HEALTHYLAX) 3350 17 GM PACKET PO PRN (11:37)
[2023-05-21] MEDS ORDERED: BENZONATATE 200 MG CAPSULE PO PRN (11:37)
[2023-05-21] MEDS ORDERED: IBUPROFEN 600 MG TABLET (FP) PO PRN (11:37)
[2023-05-21] MEDS ORDERED: BENZOCAINE/MENTHOL (CHLORASEPTIC ) LOZENGE MM PRN (11:37)
[2023-05-21] MEDS ORDERED: BISMUTH SUBSALICYLATE 524 MG/30 ML PO PRN (11:37)
[2023-05-21] MEDS ORDERED: diazePAM 5 MG TABLET PO PRN (11:41)
[2023-05-21] MEDS ORDERED: methaDONE HCL 10 MG TABLET PO SCH (13:00)
[2023-05-21] MEDS ORDERED: methaDONE 80 MG, methaDONE 20 MG PO ONE (13:15)
[2023-05-21] MEDS: hydrOXYzine PAMOATE 25 MG CAPSULE (FP) PO PRN ×2 (13:16→22:21)
[2023-05-21] MEDS: diazePAM 5 MG TABLET PO SCH ×2 (18:01→22:20)
[2023-05-21] MEDS: THIAMINE HCL 100 MG TABLET (FP) PO SCH (22:19)
[2023-05-21] MEDS: MELATONIN 5 MG TABLETS PO SCH (22:21)
[2023-05-22] MEDS: hydrOXYzine PAMOATE 25 MG CAPSULE (FP) PO PRN ×2 (05:30→17:38)
[2023-05-22] MEDS: diazePAM 5 MG TABLET PO SCH ×4 (05:30→22:07)
[2023-05-22] MEDS: methaDONE 80 MG, methaDONE 20 MG PO SCH (05:30)
[2023-05-22] MEDS: NICOTINE 21 MG/24 HOURS TOPICAL PATCH TD SCH (10:40)
[2023-05-22] MEDS: PRENATAL VITAMINS W/ FOLIC ACID TABLET (FP) PO SCH (10:40)
[2023-05-22 10:41] LABS: POTASSIUM 4.8 mmol/L (3.5-5.1)
[2023-05-22 10:45] LABS: CALCIUM 8.7 mg/dL (8.5-10.1)
[2023-05-22 10:46] LABS: ALBUMIN 3.4 g/dl (3.4-5.0); BLOOD UREA NITROGEN 38.4 mg/dL (7-18)
[2023-05-22 10:47] LABS: HEMATOCRIT 35.7 % (35.4-49); HEMOGLOBIN 12.6 GM/dL (11.7-16.9); MCHC 35.2 g/dl (32.0-35.9); PLATELET COUNT 210 10^3/uL (134-434); RBC 4.06 M/mm3 (4.00-5.60); WHITE BLOOD COUNT 5.6 K/mm3 (4.0-10.0)
[2023-05-22 10:48] LABS: CREATININE 1.5 mg/dL (0.55-1.3)
[2023-05-22 10:50] LABS: TOT PROT 7.2 g/dl (6.4-8.2)
[2023-05-22 10:52] LABS: BILIRUBIN,TOTAL 0.8 mg/dL (0.2-1)
[2023-05-22] MEDS ORDERED: QUEtiapine FUMARATE 100 MG TABLET (FP) PO SCH (22:00)
[2023-05-22] MEDS: THIAMINE HCL 100 MG TABLET (FP) PO SCH (22:07)
[2023-05-22] MEDS: QUEtiapine FUMARATE 50 MG TABLET PO SCH (22:07)
[2023-05-22] MEDS: MELATONIN 5 MG TABLETS PO SCH (22:07)
[2023-05-22] MEDS: METHOCARBAMOL 500 MG TABLET PO PRN (22:08)
[2023-05-23] MEDS: methaDONE 80 MG, methaDONE 20 MG PO SCH (05:30)
[2023-05-23] MEDS: diazePAM 5 MG TABLET PO SCH ×3 (05:31→22:19)
[2023-05-23] MEDS: hydrOXYzine PAMOATE 25 MG CAPSULE (FP) PO PRN ×3 (05:31→20:03)
[2023-05-23] MEDS: NICOTINE 21 MG/24 HOURS TOPICAL PATCH TD SCH (10:27)
[2023-05-23] MEDS: PRENATAL VITAMINS W/ FOLIC ACID TABLET (FP) PO SCH (10:27)
[2023-05-23 11:21] LABS: ALBUMIN 3.3 g/dl (3.4-5.0); BLOOD UREA NITROGEN 13.8 mg/dL (7-18)
[2023-05-23 11:23] LABS: BILIRUBIN,DIRECT 0.2 mg/dL (0.0-0.2)
[2023-05-23 11:25] LABS: BILIRUBIN,TOTAL 0.4 mg/dL (0.2-1)
[2023-05-23 11:33] LABS: CREATININE 0.9 mg/dL (0.55-1.3)
[2023-05-23] MEDS: QUEtiapine FUMARATE 50 MG TABLET PO SCH (22:19)
[2023-05-23] MEDS: METHOCARBAMOL 500 MG TABLET PO PRN (22:19)
[2023-05-23] MEDS: THIAMINE HCL 100 MG TABLET (FP) PO SCH (22:19)
[2023-05-23] MEDS: MELATONIN 5 MG TABLETS PO SCH (22:19)
[2023-05-24] MEDS: methaDONE 80 MG, methaDONE 20 MG PO SCH (05:40)
[2023-05-24] MEDS ORDERED: diazePAM 5 MG TABLET PO SCH (06:00)
[2023-05-24] MEDS: hydrOXYzine PAMOATE 25 MG CAPSULE (FP) PO PRN (10:21)
[2023-05-24] MEDS: METHOCARBAMOL 500 MG TABLET PO PRN (10:21)
[2023-05-24] MEDS: PRENATAL VITAMINS W/ FOLIC ACID TABLET (FP) PO SCH (10:21)
[2023-05-24] MEDS: NICOTINE 21 MG/24 HOURS TOPICAL PATCH TD SCH (10:22)
[2023-05-24 12:39] VITALS: BP 113/75; PULSE 95; RESP 18; TEMP 99.5
[2023-05-25] MEDS ORDERED: diazePAM 5 MG TABLET PO ONE (06:00)
== END 2023-05-24 15:16 | disposition home or self-care (01) | DRG 773 ==
LOC: YASAS 09:04 → Y6N 12:05
PROVIDERS: ADMIT Allergy & Immunology; ATTEND Surgery
PROC: HZ2ZZZZ Detoxification Services for Substance Abuse Treatment (ICD-10-PCS; principal; 2023-05-21)
DX: F13.232 Sedative, hypnotic or anxiolytic dependence with withdrawal with perceptual disturbance (principal); F11.20 Opioid dependence, uncomplicated; F14.20 Cocaine dependence, uncomplicated; F12.20 Cannabis dependence, uncomplicated; F17.210 Nicotine dependence, cigarettes, uncomplicated; F31.9 Bipolar disorder, unspecified; F19.24 Other psychoactive substance dependence with psychoactive substance-induced mood disorder; Z86.19 Personal history of other infectious and parasitic diseases; Z28.310 Unvaccinated for COVID-19; Z28.9 Immunization not carried out for unspecified reason
CPT/HCPCS: 36415; 80053; 80076; 82540; 82565; 84520; 85027; 86780; 87635; 87811; 93005; 93010

== ENCOUNTER 2023-05-28 15:23 | Inpatient (IN) | payer OTHER ==
[2023-05-28 18:36] VITALS: BMI 23.5
[2023-05-28] MEDS ORDERED: diazePAM 5 MG TABLET PO PRN (22:12)
[2023-05-28] MEDS ORDERED: MAG HYDROX/AL HYDROX/SIMETH 30 ML UNIT-DOSE CUP PO PRN (22:34)
[2023-05-28] MEDS ORDERED: ACETAMINOPHEN 325 MG TABLET (FP) PO PRN (22:34)
[2023-05-28] MEDS ORDERED: NALOXONE HCL (KLOXXADO) 8 MG SPRAY NS PRN (22:34)
[2023-05-28] MEDS ORDERED: IBUPROFEN 400 MG TABLET (FP) PO PRN (22:34)
[2023-05-28] MEDS ORDERED: BENZOCAINE/MENTHOL (CHLORASEPTIC ) LOZENGE MM PRN (22:34)
[2023-05-28] MEDS ORDERED: LOPERAMIDE HCL 2 MG CAPSULE PO PRN (22:34)
[2023-05-28] MEDS ORDERED: BENZONATATE 200 MG CAPSULE PO PRN (22:34)
[2023-05-28] MEDS ORDERED: MAGNESIUM HYDROX 2400MG/30ML ORAL SUSPENSION 30 ML CUP PO PRN (22:34)
[2023-05-28] MEDS ORDERED: METHOCARBAMOL 500 MG TABLET PO PRN (22:34)
[2023-05-28] MEDS ORDERED: BISMUTH SUBSALICYLATE 524 MG/30 ML PO PRN (22:34)
[2023-05-28] MEDS ORDERED: POLYETHYLENE GLYCOL (HEALTHYLAX) 3350 17 GM PACKET PO PRN (22:34)
[2023-05-28] MEDS ORDERED: NALOXONE HCL 0.4 MG/ML VIAL IM PRN (22:34)
[2023-05-28] MEDS ORDERED: ONDANSETRON *ODT* 4 MG TABLET SL PRN (22:34)
[2023-05-28] MEDS ORDERED: guaiFENesin 600 MG TABLET.ER (FP) PO PRN (22:34)
[2023-05-28] MEDS ORDERED: P-EPHED 60MG/TRIPROLIDI 2.5MG TABLET PO PRN (22:34)
[2023-05-28] MEDS ORDERED: NICOTINE POLACRILEX 2 MG GUM BUC PRN (22:34)
[2023-05-28] MEDS ORDERED: IBUPROFEN 600 MG TABLET (FP) PO PRN (22:34)
[2023-05-28] MEDS ORDERED: DICYCLOMINE HCL 10 MG CAPSULE PO PRN (22:34)
[2023-05-29] MEDS: levETIRAcetam 500 MG TABLET (FP) PO SCH ×3 (00:40→22:16)
[2023-05-29] MEDS: diazePAM 5 MG TABLET PO SCH ×5 (00:40→22:17)
[2023-05-29] MEDS ORDERED: diazePAM 5 MG TABLET ONE (01:06)
[2023-05-29] MEDS ORDERED: levETIRAcetam 500 MG TABLET (FP) PO ONE (01:07)
[2023-05-29] MEDS ORDERED: hydrOXYzine PAMOATE 25 MG CAPSULE (FP) PO ONE (01:16)
[2023-05-29] MEDS ORDERED: MELATONIN 5 MG TABLETS PO ONE (02:28)
[2023-05-29] MEDS ORDERED: methaDONE HCL 10 MG TABLET PO SCH (10:00)
[2023-05-29] MEDS: PRENATAL VITAMINS W/ FOLIC ACID TABLET (FP) PO SCH (10:30)
[2023-05-29] MEDS ORDERED: MELATONIN 5 MG TABLETS PO SCH (22:00)
[2023-05-29] MEDS: THIAMINE HCL 100 MG TABLET (FP) PO SCH (22:16)
[2023-05-29] MEDS: MELATONIN 5 MG TABLETS PO SCH (22:17)
[2023-05-30] MEDS: diazePAM 5 MG TABLET PO SCH ×2 (05:30→17:23)
[2023-05-30] MEDS: levETIRAcetam 500 MG TABLET (FP) PO SCH ×2 (10:26→22:18)
[2023-05-30] MEDS: PRENATAL VITAMINS W/ FOLIC ACID TABLET (FP) PO SCH (10:27)
[2023-05-30] MEDS: hydrOXYzine PAMOATE 25 MG CAPSULE (FP) PO PRN ×2 (10:34→22:18)
[2023-05-30] MEDS ORDERED: QUEtiapine FUMARATE 50 MG TABLET PO PRN (22:00)
[2023-05-30] MEDS: MELATONIN 5 MG TABLETS PO SCH (22:19)
[2023-05-30] MEDS: THIAMINE HCL 100 MG TABLET (FP) PO SCH (22:19)
[2023-05-31] MEDS ORDERED: diazePAM 5 MG TABLET PO ONE (06:00)
[2023-05-31] MEDS: hydrOXYzine PAMOATE 25 MG CAPSULE (FP) PO PRN (06:18)
[2023-05-31 09:29] VITALS: BP 115/79; PULSE 69; RESP 18; TEMP 98.4
[2023-05-31] MEDS: levETIRAcetam 500 MG TABLET (FP) PO SCH (10:37)
[2023-05-31] MEDS: PRENATAL VITAMINS W/ FOLIC ACID TABLET (FP) PO SCH (10:37)
== END 2023-05-31 13:15 | disposition other institution (70) | DRG 773 ==
LOC: YASAS 15:23 → Y6N 05-29 01:56
PROVIDERS: ADMIT Allergy & Immunology; ATTEND Allergy & Immunology
PROC: HZ2ZZZZ Detoxification Services for Substance Abuse Treatment (ICD-10-PCS; principal; 2023-05-29)
DX: F13.232 Sedative, hypnotic or anxiolytic dependence with withdrawal with perceptual disturbance (principal); F14.20 Cocaine dependence, uncomplicated; F11.20 Opioid dependence, uncomplicated; F17.210 Nicotine dependence, cigarettes, uncomplicated; F19.24 Other psychoactive substance dependence with psychoactive substance-induced mood disorder; G47.00 Insomnia, unspecified; M17.12 Unilateral primary osteoarthritis, left knee; R76.11 Nonspecific reaction to tuberculin skin test without active tuberculosis; Z62.810 Personal history of physical and sexual abuse in childhood; Z86.59 Personal history of other mental and behavioral disorders; Z28.310 Unvaccinated for COVID-19; Z28.9 Immunization not carried out for unspecified reason
CPT/HCPCS: 87635; 87811

== ENCOUNTER 2023-05-31 13:07 | Inpatient (IN) | payer OTHER ==
[2023-05-31] MEDS ORDERED: METHOCARBAMOL 500 MG TABLET PO PRN (14:30)
[2023-05-31] MEDS ORDERED: IBUPROFEN 400 MG TABLET (FP) PO PRN (14:30)
[2023-05-31] MEDS ORDERED: guaiFENesin 600 MG TABLET.ER (FP) PO PRN (14:30)
[2023-05-31] MEDS ORDERED: AMMONIUM LACTATE 12% LOTION 225 GM BOTTLE TP PRN (14:30)
[2023-05-31] MEDS ORDERED: NALOXONE HCL (KLOXXADO) 8 MG SPRAY NS PRN (14:30)
[2023-05-31] MEDS ORDERED: LOPERAMIDE HCL 2 MG CAPSULE PO PRN (14:30)
[2023-05-31] MEDS ORDERED: BENZOCAINE/MENTHOL (CHLORASEPTIC ) LOZENGE MM PRN (14:30)
[2023-05-31] MEDS ORDERED: POLYETHYLENE GLYCOL (HEALTHYLAX) 3350 17 GM PACKET PO PRN (14:30)
[2023-05-31] MEDS ORDERED: ACETAMINOPHEN 325 MG TABLET (FP) PO PRN (14:30)
[2023-05-31] MEDS ORDERED: MAG HYDROX/AL HYDROX/SIMETH 30 ML UNIT-DOSE CUP PO PRN (14:30)
[2023-05-31] MEDS ORDERED: NALOXONE HCL 0.4 MG/ML VIAL IVPUSH PRN (14:30)
[2023-05-31] MEDS ORDERED: MAGNESIUM HYDROX 2400MG/30ML ORAL SUSPENSION 30 ML CUP PO PRN (14:30)
[2023-05-31] MEDS ORDERED: BENZONATATE 200 MG CAPSULE PO PRN (14:30)
[2023-05-31] MEDS ORDERED: COLLOIDAL OATMEAL 1 BAR EACH TP PRN (14:30)
[2023-05-31] MEDS: levETIRAcetam 500 MG TABLET (FP) PO SCH (21:28)
[2023-05-31] MEDS: THIAMINE HCL 100 MG TABLET (FP) PO SCH (21:28)
[2023-05-31] MEDS ORDERED: MELATONIN 5 MG TABLETS PO SCH (22:00)
[2023-06-01] MEDS: IBUPROFEN 600 MG TABLET (FP) PO PRN (05:12)
[2023-06-01] MEDS ORDERED: methaDONE HCL 10 MG TABLET PO SCH (06:00)
[2023-06-01] MEDS ORDERED: GABAPENTIN 100 MG CAPSULE PO ONE (10:45)
[2023-06-01] MEDS: hydrOXYzine PAMOATE 25 MG CAPSULE (FP) PO PRN (10:47)
[2023-06-01] MEDS: PRENATAL VITAMINS W/ FOLIC ACID TABLET (FP) PO SCH (10:47)
[2023-06-01] MEDS: levETIRAcetam 500 MG TABLET (FP) PO SCH ×2 (11:15→21:27)
[2023-06-01] MEDS: GABAPENTIN 100 MG CAPSULE PO SCH ×2 (14:08→21:26)
[2023-06-01] MEDS: THIAMINE HCL 100 MG TABLET (FP) PO SCH (21:26)
[2023-06-01] MEDS: QUEtiapine FUMARATE 100 MG TABLET (FP) PO SCH (21:27)
[2023-06-02] MEDS: GABAPENTIN 100 MG CAPSULE PO SCH ×3 (07:09→21:04)
[2023-06-02] MEDS: hydrOXYzine PAMOATE 25 MG CAPSULE (FP) PO PRN ×2 (07:10→21:04)
[2023-06-02] MEDS: levETIRAcetam 500 MG TABLET (FP) PO SCH (09:35)
[2023-06-02] MEDS: IBUPROFEN 600 MG TABLET (FP) PO PRN (09:35)
[2023-06-02] MEDS: PRENATAL VITAMINS W/ FOLIC ACID TABLET (FP) PO SCH (09:35)
[2023-06-02] MEDS: THIAMINE HCL 100 MG TABLET (FP) PO SCH (21:04)
[2023-06-02] MEDS: QUEtiapine FUMARATE 100 MG TABLET (FP) PO SCH (21:04)
[2023-06-03] MEDS: GABAPENTIN 100 MG CAPSULE PO SCH ×3 (06:26→21:27)
[2023-06-03] MEDS: hydrOXYzine PAMOATE 25 MG CAPSULE (FP) PO PRN ×3 (06:27→21:27)
[2023-06-03] MEDS: PRENATAL VITAMINS W/ FOLIC ACID TABLET (FP) PO SCH (10:15)
[2023-06-03] MEDS: THIAMINE HCL 100 MG TABLET (FP) PO SCH (21:27)
[2023-06-03] MEDS: QUEtiapine FUMARATE 100 MG TABLET (FP) PO SCH (21:27)
[2023-06-04] MEDS: GABAPENTIN 100 MG CAPSULE PO SCH ×3 (07:00→21:31)
[2023-06-04] MEDS: hydrOXYzine PAMOATE 25 MG CAPSULE (FP) PO PRN ×2 (13:03→21:31)
[2023-06-04] MEDS: THIAMINE HCL 100 MG TABLET (FP) PO SCH (21:31)
[2023-06-04] MEDS: QUEtiapine FUMARATE 100 MG TABLET (FP) PO SCH (21:31)
[2023-06-04] MEDS: METHOCARBAMOL 500 MG TABLET PO PRN (21:31)
[2023-06-05] MEDS: GABAPENTIN 100 MG CAPSULE PO SCH ×4 (06:07→21:24)
[2023-06-05] MEDS: hydrOXYzine PAMOATE 25 MG CAPSULE (FP) PO PRN ×3 (06:07→21:25)
[2023-06-05] MEDS: NICOTINE 14 MG/24 HOURS TOPICAL PATCH TD SCH ×2 (13:23→13:43)
[2023-06-05] MEDS: THIAMINE HCL 100 MG TABLET (FP) PO SCH (21:24)
[2023-06-05] MEDS: METHOCARBAMOL 500 MG TABLET PO PRN (21:24)
[2023-06-05] MEDS: QUEtiapine FUMARATE 100 MG TABLET (FP) PO SCH (21:24)
[2023-06-06] MEDS: hydrOXYzine PAMOATE 25 MG CAPSULE (FP) PO PRN ×3 (06:08→21:26)
[2023-06-06] MEDS: GABAPENTIN 100 MG CAPSULE PO SCH ×3 (06:08→21:26)
[2023-06-06] MEDS: NICOTINE 14 MG/24 HOURS TOPICAL PATCH TD SCH (10:18)
[2023-06-06] MEDS: THIAMINE HCL 100 MG TABLET (FP) PO SCH (21:26)
[2023-06-06] MEDS: QUEtiapine FUMARATE 100 MG TABLET (FP) PO SCH (21:26)
[2023-06-06] MEDS: METHOCARBAMOL 500 MG TABLET PO PRN (21:26)
[2023-06-07] MEDS: hydrOXYzine PAMOATE 25 MG CAPSULE (FP) PO PRN ×2 (06:23→21:11)
[2023-06-07] MEDS: GABAPENTIN 100 MG CAPSULE PO SCH ×3 (06:23→21:11)
[2023-06-07] MEDS: METHOCARBAMOL 500 MG TABLET PO PRN ×2 (10:11→21:11)
[2023-06-07] MEDS: NICOTINE 14 MG/24 HOURS TOPICAL PATCH TD SCH (10:44)
[2023-06-07] MEDS: THIAMINE HCL 100 MG TABLET (FP) PO SCH (21:11)
[2023-06-07] MEDS: QUEtiapine FUMARATE 100 MG TABLET (FP) PO SCH (21:11)
[2023-06-08] MEDS: hydrOXYzine PAMOATE 25 MG CAPSULE (FP) PO PRN ×2 (06:04→14:30)
[2023-06-08] MEDS: GABAPENTIN 100 MG CAPSULE PO SCH ×2 (06:04→14:29)
[2023-06-08] MEDS: METHOCARBAMOL 500 MG TABLET PO PRN ×2 (06:04→14:30)
[2023-06-08 07:10] VITALS: BP 132/89; PULSE 79; RESP 18; TEMP 96.8
[2023-06-08] MEDS: NICOTINE 14 MG/24 HOURS TOPICAL PATCH TD SCH (10:06)
[2023-06-08] MEDS ORDERED: NICOTINE 14 MG/24 HOURS TOPICAL PATCH TD PRN (10:28)
[2023-06-08] MEDS ORDERED: BACITRACIN 0.9 GM PACKET TP SCH (11:30)
[2023-06-08] MEDS ORDERED: CARBAMIDE PEROXIDE 6.5% OTIC 15 ML BOTTLE AU SCH (11:30)
[2023-06-08 11:40] LABS: INR 1.16 (0.83-1.09); PROTHROMBIN TIME (PATIENT) 13.4 SEC (9.7-13.0)
[2023-06-08] MEDS ORDERED: QUEtiapine FUMARATE 50 MG TABLET PO SCH (22:00)
== END 2023-06-08 15:33 | disposition left against medical advice (07) | DRG 770 ==
LOC: YASAS 13:07 → Y3E 13:08
PROVIDERS: ADMIT Allergy & Immunology; ATTEND Psychiatry & Neurology Pain Medicine
PROC: HZ42ZZZ Group Counseling for Substance Abuse Treatment, Cognitive-Behavioral (ICD-10-PCS; principal; 2023-05-31)
DX: F13.20 Sedative, hypnotic or anxiolytic dependence, uncomplicated (principal); F14.20 Cocaine dependence, uncomplicated; F11.20 Opioid dependence, uncomplicated; F17.210 Nicotine dependence, cigarettes, uncomplicated; F19.24 Other psychoactive substance dependence with psychoactive substance-induced mood disorder; H66.91 Otitis media, unspecified, right ear; M17.12 Unilateral primary osteoarthritis, left knee; R74.8 Abnormal levels of other serum enzymes; R79.89 Other specified abnormal findings of blood chemistry; Z86.19 Personal history of other infectious and parasitic diseases; Z86.69 Personal history of other diseases of the nervous system and sense organs
CPT/HCPCS: 36415; 82140; 82306; 85610; 87522